=== PATIENT | male | born 1965 | race Caucasian/White ===

== ENCOUNTER 2017-06-04 09:13 | Inpatient (IN) | payer OTHER ==
[~2017-06-04] VITALS: Ht 165.1 cm; Wt 76.4 kg
[~2017-06-04 09:13] MED LIST: ASPIRIN LOW DOS81 M1 PO; METOPROLOL TART25 M1 PO; PRILOSEC 20MG C20 MG PO; SIMVASTATIN10 MG PO
--- NOTE | 2017-06-04 09:59 | ED AMS/SEIZURE/WEAK/DIZZY ---
History of Present Illness General Chief Complaint: General Adult Stated Complaint: ANXIETY,WEAKNESS Source: patient Exam Limitations: no limitations Vital Signs & Intake/Output Vital Signs & Intake/Output Vital Signs Date Time Temp Pulse Resp B/P B/P Pulse O2 O2 Flow FiO2 Mean Ox Delivery Rate 06/04 1407 97.6 80 18 123/86 99 Room Air 06/04 1305 71 144/98 06/04 1154 103 150/110 06/04 1142 98.3 103 17 150/110 99 Room Air 06/04 0921 97.3 111 16 163/115 99 Room Air Allergies Coded Allergies: NO KNOWN ALLERGIES (08/19/13) Reconcile Medications Aspirin (Aspirin Low Dose) 81 MG TAB 1 TAB PO DAILY HEART HEALTH (Reported) Metoprolol Tartrate (Lopressor) 50 MG TAB 1 TAB PO DAILY BLOOD PRESSURE ( Reported) Omeprazole (Prilosec) 20 MG CAPSULE.DR 1 TAB PO DAILY ACID REFLUX (Reported) Simvastatin (Zocor) 10 MG TABLET 1 TAB PO DAILY HIGH CHOLESTROL (Reported) Triage Note: PT TO ED WITH INCREASED WEAKNESS SINCE YESTERDAY. WAS SEEN IN THE ED YESTERDAY AND DX WITH ANXIETY AND AMS. MOTHER HERE WITH PT AND STATES THAT SHE CAME TO PICK HIM UP YESTERDAY AND HE WANTED TO LEAVE AND DID NOT WANT TO STAY TO SEE THE DOCTOR AGAIN RECOMMENDED. MOTHER STATES IT TOOK PT 1.5 HOURS TO GET READY TO GO INTO THE CAR THIS MORNING. Triage Nurses Notes Reviewed? yes HPI: Patient presents for evaluation of severe weakness that began 2 days ago. Patient was evaluated in the emergency department yesterday for similar signs and symptoms. He admits to poor sleep and poor PO intake. History is extremely limited due to severe psychomotor retardation. Patient denies fever, cold symptoms, chest pain, dyspnea or GI symptoms other than a lot of burping. He also states that he drinks alcohol occasionally and his last use was 3-4 days ago. (Carlita KERN,Amor Arthur) Past History Travel History Traveled to [place] past 21 day No Medical History Any Pertinent Medical History? see below for history Cardiovascular: hypertension Surgical History Surgical History: unobtainable Psychosocial History Who do you live with Mother Services at Home None What is your primary language Croatian Tobacco Use: Never used Family History Hx Contributory? No (Carlita KERN,Amor Arthur) Review of Systems Review of Systems Constitutional: Reports: see HPI. EENTM: Reports: no symptoms. Respiratory: Reports: no symptoms. Cardiovascular: Reports: no symptoms. GI: Reports: no symptoms. Genitourinary: Reports: no symptoms. Musculoskeletal: Reports: no symptoms. Skin: Reports: no symptoms. Neurological/Psychological: Reports: no symptoms. Hematologic/Endocrine: Reports: no symptoms. Immunologic/Allergic: Reports: no symptoms. All Other Systems: Reviewed and Negative (Carlita KERN,Amor Arthur) Physical Exam Physical Exam General Appearance: SEE BELOW Comments: Gen.: Well-nourished, well-developed, no acute respiratory distress. Appears profoundly weak. Head: Normocephalic, atraumatic. Eyes: Normal inspection bilaterally Ears: Normal inspection bilaterally Nose: Normal inspection Throat/mouth : Moist mucosa Neck: Supple, full range of motion, no goiter Heart: Regular rate and rhythm, no murmurs rubs or gallops Lungs: Clear to auscultation bilaterally with normal air entry Chest: Nontender Back: Normal range of motion Abdomen: Soft, nontender, nondistended, normal bowel sounds Extremities: Normal range of motion grossly, equal radial pulses, no cyanosis clubbing or edema Neurologic: Cranial nerves grossly intact, speech is clear Skin: warm and dry Psychiatric: Calm, cooperative, no apparent delusions or hallucinations, appears severely depressed clinically with long pauses prior to answering questions and severe indecision., Evaluation is limited due to paucity of speech Core Measures ACS in differential dx? No CVA/TIA Diagnosis No Sepsis Present: No Sepsis Focused Exam Completed? No (Carlita KERN,Amor Arthur) Progress Differential Diagnosis: DEPRESSION, BIPOLAR DISORDER, PERSONALITY DISORDER, GRIEVING Plan of Care: Orders Procedure Date/time Status Admit to inpatient psych 06/04 1445 Active URINE DRUGS OF ABUSE 06/04 1147 Complete TSH REFLEX 06/04 1003 Complete BASIC METABOLIC PANEL 06/04 1003 Complete ED CRISIS PSYCH CONSULT 06/04 1003 Active Laboratory Tests 06/04/17 1149: Urine Opiates Screen < 100, Methadone Screen < 40, Barbiturate Screen < 60, Ur Phencyclidine Scrn < 6.00, Amphetamines Screen < 100, U Benzodiazepines Scrn < 85, Urine Cocaine Screen < 50, Urine Cannabis Screen < 5.00 06/04/17 1012: Anion Gap 15, Estimated GFR > 60, BUN/Creatinine Ratio 14.0, Glucose 117 H, Calcium 10.2, TSH &T3 &Free T4 Intrp 0.934 11:15 AM PATIENT SIGNED OUT TO ME BY DR EPSTEIN, PENDING CRISIS EVALUATION. (Lauren KERN,Rosina) Initial ED EKG: none Comments: 06/04/2017 10:59:29 AM patient signed out to Dr. Aguilar at shift change attendant. (Carlita KERN,Amor Arthur) Departure Departure Disposition: STILL A PATIENT Condition: Stable Clinical Impression Primary Impression: Depression Qualifiers: Depression Type: unspecified Qualified Code: F32.9 - Major depressive disorder, single episode, unspecified Referrals: Ruiz Damon (PCP/Family) Departure Forms: Customer Survey General Discharge Information (Carlita KERN,Amor Arthur) Departure Time of Disposition: 1446 Psych Admission Note Psychiatric Admission: I have seen and evaluated RUTHY HAYS. I have also reviewed all the pertinent lab results and diagnostic results. RUTHY HAYS will be admitted to our inpatient Psychiatric unit for treatment and care. (Rosina Aguilar MD)
--- NOTE | 2017-06-04 14:42 | ED PSYCH CRISIS CONSULTATION ---
Crisis Consult Basic Assessment Date of Consult: 06/04/17 Responsible Person/Accompanied By: pt accompanied by mother Insurance Authorization: Insurance #1: Insurance name: YANELY JOHNSON Phone number: Policy number: [id number] Group number: Authorization number: ED Provider: Patient's ED Provider: Rosina Aguilar MD Primary Care Physician: Patient's PCP: Ruiz Damon PCP's Chief Complaint: General Adult Patient's Quote: " still feeling anxious." Present Illness: Pt is 51 yo single Caucaisna male who presents to ED with chief complaint of weakness since yesterday. He was seen yesterday in E.D for lightheaded symptoms with DX of anxiety and discharged with follow up plan for pt to arrange outpatient appointment with [facility]. This is pt's 2nd visit to the E.D in 24 hours. He presents as flat, minimally responive verbally, and unable to identify triggers and stressors. According to the MD's note hx was limited due ot his severe pscyhomotor reatardation. He reports high anxiety and weakness, not sleeping or eating for the past few days. Per pt he is extremely weak because he cannot "function." He has no suicidal plan/HI/AH/VH at present but feels hopeless. Pt has hx of one suicide attempt via slitting his wrists in 1991. Pt is unable to identify helpful goals for himself- when asked his eyes welled up. Pt is accompanied by his mother who reports the pt has not been himself the past few days - not eating, sleeping and is physically shaking. She is worried about him because it is getting worse. The pt has no friends, and has not been able to work in years, so he has no money. He has no structure to his day. Pt also recently stopped driving due to anxiety. Pt is not in any formal mental health tx and has no psychiatrist. Per previous consult pt is prescribed metoprolol and zocor. Collateral voicemails left with [facility] and PCP [phone]. This story writer consulted with Dr. Laurent and recommends acute inpatient treatment as the pt meets criteria for gravely disabled. Pt signed voluntary admission form. Per the crisis consult yestrday 06/03/17: Patient is a 51 year old male who presents with report of feeling lightheaded. Patient is single, never , with no children. He resides with his mother in [place], [place]. He has been unemployed for several years - he was formerly employed in several different retail settings. On arrival to the emergency department, patient was minimally responsive verbally but had no focal deficits. He was medically cleared with no acute findings by attending physician Dr. Aguilar who conducted blood labwork and a CT scan to rule out potential neurological issues. Patient was found to be hypertensive at home with a slightly elevated blood glucose level. Patient's primary care physician is SEGUN Layne of [facility]. Patient was advised to consult PCP after discharge. Patient is prescribed metoprolol to manage hypertension and zocor for hyperlipidimia. Patient denies any other medical concerns at this time. When asked if he has made any changes recently, patient reports decreasing food intake due to symptoms of bloating. Patient does not have any current mental health treatment. Patient had a psychiatric consultation and was diagnosed with alcohol abuse and depression NOS in 2009 at [facility]. Patient only reports other mental treatment with a brief episode lasting ~1 year at [facility] where he received outpatient therapy in [id number]. Patient states he was treated for depression and reports at that time he was depressed at a "2-3 level." Today, when asked to self-assess using that scale, patient reports depression ~1. Patient does indicate symptoms of anxiety and potentially symptoms indicative of a panic disorder. This story writer provided brief counseling on typical panic symptoms and how feelings of lightheadedness can rapidly progress to a full panic attack. Patient agreed this may be what happened earlier. With regards to past depression, patient states "my life was plan and ordinary" and indicates this boredom as a factor to his mood. Patient indicates he has been searching for a new career but expressed pessimism overall when discussing employment. Patient denies any current substance use. He reports only intermittent alcohol use socially and sometimes on weekdays. Patient's urine toxicology screening is negative for all substances. Patient presents alert, oriented and with flat affect / sad mood. Patient denies current or past suicidal ideation. Patient denies current or past auditory / visual hallucinations. In evaluation, there is no indication of active psychosis. Patient denies access to guns in his home. Patient reports he has the support of one cousin who lives in [place], [place] and the support of his mother with whom he resides currently. >>>>>>>>>Danny Garcia [facility] Patient's Address: [address] [place] [address] Other Phone Number: Who Do You Live With? Mother Family/Informants Interviewed: Sania [phone] ( mother) Allergies - Coded Allergies: NO KNOWN ALLERGIES (08/19/13) Current Medications - Scheduled Medications Aspirin (Aspirin Low Dose) 81 MG TAB 1 TAB PO DAILY HEART HEALTH (Reported) Entered as Reported by Connie Romero on 08/19/13 1414 Metoprolol Tartrate (Lopressor) 50 MG TAB 1 TAB PO DAILY BLOOD PRESSURE ( Reported) Entered as Reported by Connie Romero on 08/19/13 1411 Omeprazole (Prilosec) 20 MG CAPSULE.DR 1 TAB PO DAILY ACID REFLUX (Reported) Entered as Reported by Connie Romero on 08/19/13 1410 Simvastatin (Zocor) 10 MG TABLET 1 TAB PO DAILY HIGH CHOLESTROL (Reported) Entered as Reported by Connie Romero on 08/19/13 1409 Laboratory Results: Laboratory Tests 06/04/17 1149: Urine Opiates Screen < 100, Methadone Screen < 40, Barbiturate Screen < 60, Ur Phencyclidine Scrn < 6.00, Amphetamines Screen < 100, U Benzodiazepines Scrn < 85, Urine Cocaine Screen < 50, Urine Cannabis Screen < 5.00 06/04/17 1012: Anion Gap 15, Estimated GFR > 60, BUN/Creatinine Ratio 14.0, Glucose 117 H, Calcium 10.2, TSH &T3 &Free T4 Intrp 0.934 Past History Past Medical History Cardiovascular: hypertension Past Surgical History Surgical History: unobtainable Psychosocial History Strengths/Capabilities: Patient is motivated to seek treatment. Physical Limitations (Interventions): None assessed. Psychiatric Treatment History Psych Treatment Psychiatric Treatment Yes Inpatient Treatment Yes Outpatient Treatment Yes Location of Treatment [facility] Reason for Treatment Pt tried to comitt suicide in 1991 by slitting his wrists. Dates of Treatment 1991, [id number] Response to Treatment poor Diagnosis by History: Depressive disorder alcohol use disorder Substance Use/Abuse History Drug Use/Abuse Substances Used/Abused Yes Substance Used/Abused Alcohol First Use unknown Last Used couple days ago How much used/taken weekends How often intermittently For how long intermittent Route of use oral Substance Abuse Treatment Substance Abuse Treatment Past Substance Abuse [place] No Inpatient Treatment No Outpatient Treatment No Current Mental Status Mental Status Orientation: Person, Place, Situation Affect: Flat, Hopeless, Lonely Speech: Pressured, Soft Neuro-vegetative: Anhedonia, Appetite Decreased, Concentration Poor, Energy Decreased, Helpless, Loss of Interest, Sleep Disturbance Appearance Appearance- Dress/Hygiene: Pt is dressed in blue hospital scrubs, wearing glasses and hygiene is fair Behaviors Thought Process: WNL Thought Content: WNL Memory: Impaired Insight: Poor SI/HI Risk Assessment Past Suicidal Ideation/Attempts Yes Current Suicidal Ideation/Att No Past Homicidal Ideation/Att: No Current Homicidal Ideation/Attempts No Degree of Intent: None Gravely Disabled: Inability, Lack of Insight Risk Factors: high anxiety/distress, history of suicide atmpts, SA/MH hospitalized, poor impulse control, male, limited support Lethality Ratin PTSD Checklist PTSD Done? pt unable to participate ED Management Sitter: Yes Restraints: No DSM5/PS Stressors/Medical Prob Diagnosis' (DSM 5, Stressors, Medical): F32.9 unspecified depression F41.9 unspecified anxiety medical: HTN pscyhosocial: employment, financial, isolated, limited social supports Current GAF: 25 Departure Disposition Psych Medical Clearance Date: 06/04/17 Medically Cleared at: 1310 Time Started: 1310 Time Ended: 1410 Psychiatrist Consulted: Ivy Laurent MD Date Disposition Established: 06/04/17 Time Disposition Established: 1409 Plan for Disposition - Modality: Inpatient Psychiatry Facility: [facility] Rationale for Disposition: Pt presents to ED 2x in 24 hours for worsening symptoms of anxiety and panic symptoms. He presents as hopeless/ tearful and unable to identify triggers or stressors. Pt is not eating, sleeping and not able to talk at times and noted he stopped driving the past month and half due to anxiety and panic symptoms. Pt has hx of one suicide attempt in 1991 via slitting his wrists. This story writer consulted with Dr. Laurent and recommends acute inpatient treatment as the pt meets criteria for gravely disabled. Pt signed voluntary admission form. Type of IP Admission: Voluntary Referrals Ruiz Damon (PCP/Family)
--- NOTE | 2017-06-04 14:43 | SOCIAL WORKER SOCIAL HX PSYCH ---
Social History Basic Assessment Insurance Authorization: Insurance #1: Insurance name: YANELY JOHNSON Phone number: Policy number: [id number] Group number: Authorization number: Member Name Member ID Member Subscriber Name Subscriber ID RUTHY HAYS [id number] RUTHY HAYS [id number] Pended Authorization # Client Authorization # Type of Request [id number] [facility] Source of Income/Entitlements: unemployment Primary Care Physician: Patient's PCP: Ruiz Damon PCP's Present Problem: Pt is 51 yo single Caucaisna male who presents to ED with chief complaint of weakness since yesterday. He was seen yesterday in E.D for lightheaded symptoms with DX of anxiety and discharged with follow up plan for pt to arrange outpatient appointment with [facility]. This is pt's 2nd visit to the E.D in 24 hours. He presents as flat, minimally responive verbally, and unable to identify triggers and stressors. According to the MD's note hx was limited due ot his severe pscyhomotor reatardation. He reports high anxiety and weakness, not sleeping or eating for the past few days. Per pt he is extremely weak because he cannot "function." He has no suicidal plan/HI/AH/VH at present but feels hopeless. Pt has hx of one suicide attempt via slitting his wrists in 1991. Pt is unable to identify helpful goals for himself- when asked his eyes welled up. Pt is accompanied by his mother who reports the pt has not been himself the past few days - not eating, sleeping and is physically shaking. She is worried about him because it is getting worse. The pt has no friends, and has not been able to work in years, so he has no money. He has no structure to his day. Pt also recently stopped driving due to anxiety. Pt is not in any formal mental health tx and has no psychiatrist. Per previous consult pt is prescribed metoprolol and zocor. Collateral voicemails left with [facility] and PCP [phone]. This news writer consulted with Dr. Laurent and recommends acute inpatient treatment as the pt meets criteria for gravely disabled. Pt signed voluntary admission form. Per the crisis consult yestrday 06/03/17: Patient is a 51 year old male who presents with report of feeling lightheaded. Patient is single, never , with no children. He resides with his mother in [place], [place]. He has been unemployed for several years - he was formerly employed in several different retail settings. On arrival to the emergency department, patient was minimally responsive verbally but had no focal deficits. He was medically cleared with no acute findings by attending physician Dr. Aguilar who conducted blood labwork and a CT scan to rule out potential neurological issues. Patient was found to be hypertensive at home with a slightly elevated blood glucose level. Patient's primary care physician is SEGUN Layne of [facility]. Patient was advised to consult PCP after discharge. Patient is prescribed metoprolol to manage hypertension and zocor for hyperlipidimia. Patient denies any other medical concerns at this time. When asked if he has made any changes recently, patient reports decreasing food intake due to symptoms of bloating. Patient does not have any current mental health treatment. Patient had a psychiatric consultation and was diagnosed with alcohol abuse and depression NOS in 2009 at [facility]. Patient only reports other mental treatment with a brief episode lasting ~1 year at [facility], [place] where he received outpatient therapy in [id number]. Patient states he was treated for depression and reports at that time he was depressed at a "2-3 level." Today, when asked to self-assess using that scale, patient reports depression ~1. Patient does indicate symptoms of anxiety and potentially symptoms indicative of a panic disorder. This news writer provided brief counseling on typical panic symptoms and how feelings of lightheadedness can rapidly progress to a full panic attack. Patient agreed this may be what happened earlier. With regards to past depression, patient states "my life was plan and ordinary" and indicates this boredom as a factor to his mood. Patient indicates he has been searching for a new career but expressed pessimism overall when discussing employment. Patient denies any current substance use. He reports only intermittent alcohol use socially and sometimes on weekdays. Patient's urine toxicology screening is negative for all substances. Patient presents alert, oriented and with flat affect / sad mood. Patient denies current or past suicidal ideation. Patient denies current or past auditory / visual hallucinations. In evaluation, there is no indication of active psychosis. Patient denies access to guns in his home. Patient reports he has the support of one cousin who lives in [place], [place] and the support of his mother with whom he resides currently. >>>>>>>>>Danny PAULW Primary Language? Estonian Language(s) Spoken At Home: Estonian Living Situation Other Living Arrangement: relative's/guardian's mali Allergies - Coded Allergies: NO KNOWN ALLERGIES (08/19/13) Current Medications - Scheduled Medications Aspirin (Aspirin Low Dose) 81 MG TAB 1 TAB PO DAILY HEART HEALTH (Reported) Entered as Reported by Connie Romero on 08/19/13 1414 Metoprolol Tartrate (Lopressor) 50 MG TAB 1 TAB PO DAILY BLOOD PRESSURE ( Reported) Entered as Reported by Connie Romero on 08/19/13 1411 Omeprazole (Prilosec) 20 MG CAPSULE.DR 1 TAB PO DAILY ACID REFLUX (Reported) Entered as Reported by Connie Romero on 08/19/13 1410 Simvastatin (Zocor) 10 MG TABLET 1 TAB PO DAILY HIGH CHOLESTROL (Reported) Entered as Reported by Connie Romero on 08/19/13 1409 Past History Past Medical History Cardiovascular: hypertension Past Surgical History Surgical History: unobtainable /Family History Place/Country of Origin: [place] Childhood Family Constellation: Pt has 2 sisters and a brother all local in the area Primary Childhood Caretakers: mother Family Life During Childhood: good DCF Involvement? No Relationship w/Mother: good Relationship w/Father: father passed years ago , had a good relationship with him Any Sibling(s)? Yes Sibling's Gender(s)/Age(s): female Sibling 1:, female Sibling 2:, male Sibling 3: Relationship w/Sibling(s): good Relationship w/Friends: Pt said he has no friend. Other Comments: limited hx obtained due to lack of verbal responses Abuse/Trauma History Trauma History/Current Trauma: Denies Legal History Legal Guardian/Address/Phone: self Current Legal Status: none Pending Court Dates: NA Have you ever been arrested No Number of Arrests: 0 Hx of Juvenile Legal Charges? No Hx of Adult Legal Charges? No Civil Proceedings: PT denies Psychosocial History Primary Support System: mother Strengths/Capabilities: Patient is motivated to seek treatment. Weaknesses: lack of insight Physical Limitations (Interventions): None assessed. Last Physical: unknown History of Seizures? No History of Blackouts? No ADL Limitations: limited hx obtained due to lack of verbal responses Archbold/Social/Peer Relations no friends Meaningful Activities: none Childhood Adventism: no confucianist stated Current Worship Affiliation: no confucianist stated Is Spirituality Important to You? limited hx obtained due to lack of verbal responses Patient's Ethnicity: Hungarian Cultural/Ethnic Issues: none stated Are There Developmental Issues? No Milestones Achieved: fine motor, gross motor Psychiatric Treatment History Psych Treatment Inpatient Treatment Yes Outpatient Treatment Yes Location of Treatment [facility] Reason for Treatment Pt tried to comitt suicide in 1991 by slitting his wrists. Dates of Treatment 1991, [id number] Response to Treatment poor Current Trimmer And Reinforcer: none Treatment of Prior Episodes: [facility] Diagnosis: Depressive disorder alcohol use disorder Psychodynamic Issues: none stated Risk Factors: high anxiety/distress, history of suicide atmpts, isolate/no social support, male, limited support Substance Use/Abuse History Drug Use/Abuse Substance Used/Abused Alcohol First Use unknown Last Used few days ago How much used/taken a few beers How often on weekends For how long intermittently Route of use oral Have Had Periods of Sobriety? Yes Substance Abuse Treatment Substance Abuse Treatment Inpatient Treatment No Outpatient Treatment No Sexual History Sexually Active No Sexual Orientation Heterosexual Sexual Concerns: none stated Education History Highest Level of Education: not sure HX of Learning Difficulties: None reported Barriers to Learning: None reported Special Communication Needs: None reported Employment History Employment Unemployed Vocation/Occupational Hx: hx of retail stores No. of Jobs in Last 5 Years: 0 Attendance: Absenteeism Performance: Below Average History Have You Been in The ? No Current Mental Status Problem List: 1. Anxiety 2. Depression Mental Status Orientation: Person, Place, Situation Affect: Flat, Hopeless, Lonely Speech: Pressured, Soft Neuro-vegetative: Anhedonia, Appetite Decreased, Concentration Poor, Energy Decreased, Loss of Interest, Sleep Disturbance Appearance Appearance- Dress/Hygiene: pt is dressed in blue hospital scrubs, wearing glasses and hygiene is fair. Behaviors Thought Process: WNL Thought Content: WNL Memory: Impaired Insight: Poor SI/HI Risk Assessment Past Suicidal Ideation/Attempts Yes Current Suicidal Ideation/Att No Past Homicidal Ideation/Att: No Current Homicidal Ideation/Attempts No Degree of Intent: None Gravely Disabled: Inability, Lack of Insight Risk Factors: High Anxiety/Distress, SA/MH Hospitalization(s), Hx of suicide attempt(s), Isolated/no social suppor, Male, Poor impulse control Lethality Ratin - Conclusion and Recommendations for treatment - and discharge planning Summary: Pt is 51 yo single Natalya male who presents to ED with chief complaint of weakness since yesterday. He was seen yesterday in E.D for lightheaded symptoms with DX of anxiety and discharged with follow up plan for pt to arrange outpatient appointment with [facility]. This is pt's 2nd visit to the E.D in 24 hours. He presents as flat, minimally responive verbally, and unable to identify triggers and stressors. According to the MD's note hx was limited due ot his severe pscyhomotor reatardation. He reports high anxiety and weakness, not sleeping or eating for the past few days. Per pt he is extremely weak because he cannot "function." He has no suicidal plan/HI/AH/VH at present but feels hopeless. Pt has hx of one suicide attempt via slitting his wrists in 1991. Pt is unable to identify helpful goals for himself- when asked his eyes welled up. Pt is accompanied by his mother who reports the pt has not been himself the past few days - not eating, sleeping and is physically shaking. She is worried about him because it is getting worse. The pt has no friends, and has not been able to work in years, so he has no money. He has no structure to his day. Pt also recently stopped driving due to anxiety. Pt is not in any formal mental health tx and has no psychiatrist. Per previous consult pt is prescribed metoprolol and zocor. Collateral voicemails left with [facility] and PCP [phone]. This news writer consulted with Dr. Laurent and recommends acute inpatient treatment as the pt meets criteria for gravely disabled. Pt signed voluntary admission form. Per the crisis consult yestrday 06/03/17: Patient is a 51 year old male who presents with report of feeling lightheaded. Patient is single, never , with no children. He resides with his mother in [place], [place]. He has been unemployed for several years - he was formerly employed in several different retail settings. On arrival to the emergency department, patient was minimally responsive verbally but had no focal deficits. He was medically cleared with no acute findings by attending physician Dr. Aguilar who conducted blood labwork and a CT scan to rule out potential neurological issues. Patient was found to be hypertensive at home with a slightly elevated blood glucose level. Patient's primary care physician is SEGUN Layne of [facility]. Patient was advised to consult PCP after discharge. Patient is prescribed metoprolol to manage hypertension and zocor for hyperlipidimia. Patient denies any other medical concerns at this time. When asked if he has made any changes recently, patient reports decreasing food intake due to symptoms of bloating. Patient does not have any current mental health treatment. Patient had a psychiatric consultation and was diagnosed with alcohol abuse and depression NOS in 2009 at [facility]. Patient only reports other mental treatment with a brief episode lasting ~1 year at [facility] [place] where he received outpatient therapy in [id number]. Patient states he was treated for depression and reports at that time he was depressed at a "2-3 level." Today, when asked to self-assess using that scale, patient reports depression ~1. Patient does indicate symptoms of anxiety and potentially symptoms indicative of a panic disorder. This news writer provided brief counseling on typical panic symptoms and how feelings of lightheadedness can rapidly progress to a full panic attack. Patient agreed this may be what happened earlier. With regards to past depression, patient states "my life was plan and ordinary" and indicates this boredom as a factor to his mood. Patient indicates he has been searching for a new career but expressed pessimism overall when discussing employment. Patient denies any current substance use. He reports only intermittent alcohol use socially and sometimes on weekdays. Patient's urine toxicology screening is negative for all substances. Patient presents alert, oriented and with flat affect / sad mood. Patient denies current or past suicidal ideation. Patient denies current or past auditory / visual hallucinations. In evaluation, there is no indication of active psychosis. Patient denies access to guns in his home. Patient reports he has the support of one cousin who lives in [place], [place] and the support of his mother with whom he resides currently. >>>>>>>>>Danny Garcia [facility]
[2017-06-04 18:19] VITALS: BP 162/110
[2017-06-04] MEDS ORDERED: LISINOPRIL10 M1 PO (19:28)
[2017-06-04 20:21] VITALS: BP 162/110
[2017-06-04 20:27] VITALS: BP 162/110
--- NOTE | 2017-06-04 21:16 | History & Physical ---
General Information and HPI MD Statement: I have seen and personally examined RUTHY HAYS and documented this H&P. The patient is a 51 year old M who presented with a patient stated chief complaint of [ medical evaluation ]. Source of Information: patient Exam Limitations: poor historian History of Present Illness: 51 Y O M with PMH HTN, Ulcerative colitis presented in ER with his mother for extreme fatigue, not sleeping in last 4 days and poor PO intake. He appeared very depressed and anxious in ER, and admitted in [facility]. Patient denied suicidal ideation, HI, hallucinations. He offers no complains, no Chest pain, tightness, palpitations, headache, vision problem, N/ V / D, abdo pain, urinary s/s, skin rashes. Patient follows up Dr. Hudson for HTN and ?small heart enzyme elevation in 2007. No cardiac stents, no Heart failure. Patient takes lisinopril on and off. Patient picked up his recent prescription on Apr but has not been taking meds for unclear reason. For ulcerative colitis patient follows up with Dr. Deny Vasquez and complaint with mesalamine. Additionally he takes aspirin scheduled and dicyclomine PRN. Allergies/Medications Allergies: Coded Allergies: NO KNOWN ALLERGIES (08/19/13) Home Med list Aspirin (Aspirin Low Dose) 81 MG TAB 1 TAB PO DAILY HEART HEALTH (Reported) Dicyclomine HCl 10 MG CAPSULE 1 CAP PO TID PRN abdo pain (Reported) Lisinopril 10 MG TABLET 2 TAB PO DAILY HIGH BLOOD PRESSURE (Reported) Mesalamine (Apriso) 0.375 GRAM CAP.ER.24H 4 CAP PO DAILY ulcerative colitis ( Reported) Metoprolol Tartrate 25 MG TABLET 0.5 TAB PO BID HTN (Reported) Pantoprazole Sodium 20 MG TABLET.DR 1 TAB PO DAILY GERD (Reported) Simvastatin (Zocor) 10 MG TABLET 1 TAB PO DAILY HIGH CHOLESTROL (Reported) Compliance With Home Meds: FAIR Past History Travel History Traveled to [place] past 21 day No Medical History Cardiovascular: hypertension Psychiatric: anxiety, depression Surgical History Surgical History: unobtainable Past Family/Social History Psychosocial History Where do you live? Home Who Do You Live With? parent Services at Home: None Smoking Status: Never Smoked ETOH Use: occasional use Illicit Drug Use: denies illicit drug use Functional Ability ADLs Independent: dressing, eating, toileting, bathing. Ambulation: independent Sexual History Past Sexual History Unobtainable at this time Employment History Employment Unemployed Profession/Employer hx of retail stores Review of Systems Review of Systems Constitutional: Reports: no symptoms, see HPI. Exam & Diagnostic Data Last 24 Hrs of Vital Signs/I&O Vital Signs Date Time Temp Pulse Resp B/P B/P Pulse O2 O2 Flow FiO2 Mean Ox Delivery Rate 06/04 2026 94 16 162/110 06/04 2021 97.0 94 18 162/110 06/04 2020 97.0 94 162/110 06/04 1819 97.0 94 162/110 06/04 1621 98.1 74 18 122/78 98 Room Air 06/04 1407 97.6 80 18 123/86 99 Room Air 06/04 1305 71 144/98 06/04 1154 103 150/110 06/04 1142 98.3 103 17 150/110 99 Room Air 06/04 0921 97.3 111 16 163/115 99 Room Air Physical Exam General Appearance Alert, Oriented X3, Cooperative, No Acute Distress Skin No Rashes, No Breakdown HEENT Atraumatic, PERRLA, EOMI Neck Supple, No JVD, No thryomegaly, +2 Carotid Pulse wo Bruit Lymphatic Cervical nl Cardiovascular Regular Rate, Normal S1, Normal S2, No Murmurs Lungs Clear to Auscultation, Normal Air Movement Abdomen Normal Bowel Sounds, Soft, No Tenderness Neurological Exam Findings: Normal Gait, Normal Speech, Strength at 5/5 X4 Ext, Normal Tone, Sensation Intact, Cranial Nerves 3-12 NL, Reflexes 2+ Cranial Nerves II through XII: 3 to 12 intact Extremities No Clubbing, No Cyanosis, No Edema Vascular Pulses Symmetrical Last 24 Hrs of Labs/West: Laboratory Tests 06/04/17 1149: Urine Opiates Screen < 100, Methadone Screen < 40, Barbiturate Screen < 60, Ur Phencyclidine Scrn < 6.00, Amphetamines Screen < 100, U Benzodiazepines Scrn < 85, Urine Cocaine Screen < 50, Urine Cannabis Screen < 5.00 06/04/17 1012: Anion Gap 15, Estimated GFR > 60, BUN/Creatinine Ratio 14.0, Glucose 117 H, Calcium 10.2, TSH &T3 &Free T4 Intrp 0.934 Diagnostic Data EKG Results reviewed Assessment/Plan Assessment: # accelerated HTN : secondary to non-compliance. Patient could not confirm the dose of his meds. according to claim Hx he is on Metoprolol 12.4 BID and Lisinopril 20 daily. His BP was 163/115 on arrival in Er. He received 50 mg metoprolol while in ER and Bp improved to 144/98 >> 122/78 then again raised to 162/110 in [facility]. When I manually checked his BP : it was 180/118. I will continue Lisinopril 20 mh Po daily starting first dose now. Metoprolol 25 Bid, first dose now. Recheck Bp overnight. Patient does not have any complains. ECG reviewed : does not show LVH. advised to give something for anxiety as well. # Ulcerative colitis : Continue mesalamine # Depression : agree with psych plan As Ranked By This Provider Problem List: 1. Anxiety 2. Depression Qualifiers Depression Type: unspecified Qualified Code: F32.9 - Major depressive disorder, single episode, unspecified 3. Accelerated essential hypertension 4. Colitis Miscellaneous Miscellaneous Documentation Attending Case Discussed With: Ivy Laurent MD Primary Care Physician: Ruiz Damon Patient sees these Specialists Dr. Becca Vasquez Level of Patient Care: David Owen MD Review Statement Attending Statement Attending MD Statement: I personally interviewed the patient and noted H and P
[2017-06-04 22:04] VITALS: BP 138/88
[2017-06-04] MEDS ORDERED: PANTOPRAZOLE SO20 M1 PO (22:32)
[2017-06-04] MEDS ORDERED: DICYCLOMINE HCL10 M1 PO (22:33)
[2017-06-04] MEDS ORDERED: APRISO0.375 G1 PO (22:33)
[2017-06-05] VITALS (11 sets, daily range): BP systolic 112–162; BP diastolic 78–110
--- NOTE | 2017-06-05 00:12 | Admission Certification ---
Admission Certification Certification Statement - As attending physician, I certify that at the time of - admission, based on clinical presentation, severity of - symptoms, need for further diagnostic testing and - therapeutic interventions, and risk of adverse outcomes - without in-hospital treatment, in my clinical assessment, - this patient requires an acute hospital stay for a minimum - of two nights or longer. I have also considered psychsocial - factors such as support system, advanced age, financial - issues, cognitive issues, and failed out-patient treatments, - past re-admission history, safety of patient, and lack of - compliance as applicable. Specific rationale supporting this admission is: Depression
--- NOTE | 2017-06-05 11:42 | CPS PROVIDER INIT ASMT PSYCH ---
Psychiatric Admission Maintenance Shop Clerk's Note Reviewed: Yes Patient Seen and Examined: Yes Identifying Information: Pt is 51 yo single Natalya male Chief Complaint: Patient presented to the emergency department with a complaint of weakness, lightheadedness and anxiety. Inability to "function." Reaction to Hospitalization: Calm and cooperative. History of Present Illness Onset of Illness: "Past couple of weeks. Before that I was fairly fine." Circumstances Leading to Admission: Patient presented to the emergency department twice in 24 hours complaining of anxiety and inability to "function." Denied suicidal plan, homicidal ideation, auditory or visual hallucinations. Stated he felt hopeless. Problem(s) Justifying Need for Admission: Gravely disabled Past Psychiatric History Past Diagnosis(es)- if any: Depression Anxiety Hyperlipidemia Hypertension Ulcerative colitis Past Precipitating Factors- if any: "When I think about my plan for the future." - Include inpatient and outpatient treatment Treatment History: Several visits to the ER for EtOH over the past few years. History of Suicide Attempts or Gestures Pt has hx of one suicide attempt by slitting his wrists in 1991. Substance Abuse History: EtOH. was seen in ER in 2009. Continues to drink socially. Drinks to excess "once a year." Denies marijuana or other illicit drugs. In a consult note from 2009, it was stated that at that time the patient reported a history of alcohol abuse for 20 years. Allergies: Coded Allergies: NO KNOWN ALLERGIES (08/19/13) Home Med List: Aspirin (Aspirin Low Dose) 81 MG TAB Metoprolol Tartrate (Lopressor) 50 MG TAB Omeprazole (Prilosec) 20 MG CAPSULE.DR 1 TAB Lisinopril Pentasa - Include any medical condition(s) that may - impact the patient's recovery/remission Past History Medical History Cardiovascular: hypertension Gastrointestinal: ulcerative colitis Psychiatric: anxiety, depression Surgical History Surgical History: Addenoids removed. Psychiatric Family/Social Hx Family History Psychiatric Illness: Paternal aunt, unknown serious mental illness. Substance Use: Father was an alcoholic. Suicides: Denies Social History Living Situation: Lives with mother in [place]. Significant Relationships (family/friends): Mother, two cousins, brother and two sisters. Education: BS in psychology. Vocation/Occupation: Unemployed for past 4 years. Worked in [employer] and [employer] in the past. Legal: Denies Healthly Behaviors Screening Tobacco Screening Tobacco Use from ED Docu: Never used - If tobacco counseling indicated - the following topics are required. - #1 Recognizing dangerous situations. - #2 Coping Skills. - #3 Basic information about quitting. Status of Tobacco Cessation Counseling: Not Applicable Cessation Med Status Not Applicable Alcohol Screening - ETOH screen POS if BAL >=80 or Audit-C>= M4/F3 Audit-C Score from Diag Assess: 3 Blood Alcohol Level: Lab Serum Alcohol < 10.0 MG/DL 06/03/17 1135 Alcohol Use Screening Results: Pos per Audit C &/or BAL - If ETOH counseling indicated - the following topics are required. - #1 Express concern about the patient's - drinking at unhealthy levels, include informing - of national norms for moderate drinking: - men <= 14 drinks/week, max 4 drinks/occasion - women <= 7 drinks/week, max 3 drinks/occasion - #2 Providing feedback, including linking alcohol to - negative physical effects (liver injury, hypertension) - negative emotional effects (relationship problems and - depression) - negative occupational consequences (reduced work - performance) - #3 Advising the patient to abstain from alcohol or - to drink below national norms for moderate drinking - (as listed above). Status of ETOH Use Counseling: #1, #2 AND #3 Completed. Metabolic Screening - Screen if on a Neuroleptic Medication - Metabolic screening should include: - Blood Pressure, BMI, Glucose or Hgb A1c, & a - Lipid profile from within the past 365 days. Metabolic Screening ([x]) Not Applicable, patient not on a neuroleptic. OR () Patient on a neuroleptic(s) . Enter below results for Hemoglobin A1C, and lipid panel if obtained during the last 365 days. BMI: 28.000 Blood Pressure: 116/90 Laboratory Results From [facility] (If applicable): Exam and Plan Mental Status Examination Ambulation Status: Patient ambulates independently with steady gait. Appearance: Appropriately groomed, in hospital paper scrubs. Attitude towards examiner: Calm and cooperative Psychomotor activity: Within normal limits Behavior: Calm and cooperative Quality of speech: Speech is well articulated, goal-directed, average in rate, volume and tone. Affect: Slow, mildly flat. Mood: Some depression and anxiety Depression 2/10; anxiety 3/10. (With 10 the worst.) Suicidal Ideation: Denies. States he had a suicidal attempt by slitting his wrist in 1991. Patient states and also believes that he will not kill himself. Homicidal Ideation: Denies Hallucinations: Denies Paranoid/Delusional Material: Denies Difficulties with thought organization: Patient has somewhat delayed responses to questions. Insight: Fair Judgment: Fair Orientation: Alert and oriented to person, place, time and situation. Cognition: Within normal limits Memory Function: Apparently within normal limits Estimate of intellectual functioning: Average Assets/Strengths Patient Identified Assets/Strengths: "Reliable. Pile Driver Operator. Personable." Impression/Plan Impression and Plan: Major depressive disorder, recurrent, severe Generalized anxiety disorder 1. Continue Celexa for depression and anxiety 2. Continue gabapentin for anxiety 3. Melatonin at bedtime for sleep. - Include all active medical diagnosis that require tx DSM 5 Diagnosis(es): Major depressive disorder, recurrent severe. Generalized anxiety disorder. - Initial Tx Plan for Active Psych & Medical Conditions Treatment Plan: PLAN: The patient will be monitored on the unit for safety, depression and anxiety. Additional information is needed from collaterals, including his mother. Anticipate once clinically stable, that the patient will be discharged to home and family and be referred to [facility]. - Factors that would help patient function - in a less restrictive setting. Factors: Patient will report alleviation of depression and anxiety, and demonstrate ability to attend to his ADLs.
--- NOTE | 2017-06-05 17:35 | SOCIAL WORKER PROG NOTE PSYCH ---
Social Work Progress Note Progress Note This marketing writer met with patient. Patient's mother was visiting and therefore this marketing writer and patient met for a shortened period of time. Patient reported that his mood was "ok". He denied SI/HI/AH/VH. Patient stated that he had been in treatment at [facility] in the past and would like to return upon discharge. Patient and this marketing writer agreed to meet tomorrow.
[2017-06-06] VITALS (8 sets, daily range): BP systolic 117–137; BP diastolic 73–92
--- NOTE | 2017-06-06 13:55 | CP SOUTH PROGRESS NOTE PSYCH ---
Psych (Inpt) Progress Note Progress Note Include the following elements, when applicable: Involvement in the active treatment of the patient with behavioral observations of the patient and the patient's response to the treatment. Review of the ongoing treatment process in the context of the treatment plan. Indication of how multi-disciplinary staff members are carrying out the treatment plan. Plans for future interventions and recommendations for revision of the treatment plan. Liaison with other physicians/providers. Progress Note: I discussed this patient's progress to date, current mental status, treatment process in the context of the treatment plan, and discharge planning with staff/ team in the daily morning inpatient team meeting. I also met with the patient myself in individual session. A total of 25 minutes was spent with the patient with more than 50% spent in counseling and/or coordination of care. SUBJECTIVE: "sometimes I hear a voice telling me to turn right or turning left, pick this up, put that down. Sometimes the voices are helpful. Maybe it is my own inner voice. It is weird, it does not really bother me." OBJECTIVE: Current Medications Sig/Jazz Start time Last Medication Dose Route Stop Time Status Admin Aspirin 81 MG DAILY 06/05 1000 AC 06/06 PO 0817 Atorvastatin Calcium 10 MG 1700 06/05 1700 AC 06/05 PO 1730 Citalopram 20 MG 0800 06/06 0800 AC 06/06 Hydrobromide PO 0818 Dicyclomine HCl 10 MG TID PRN 06/04 2245 AC PO Gabapentin 300 MG TID 06/04 2200 AC 06/06 PO 0818 Gabapentin 200 MG Q2 HRS NEEDED PRN 06/05 1999 AC 06/04 PO 2022 Lisinopril 20 MG DAILY 06/05 1000 AC 06/06 PO 0818 Lorazepam 1 MG Q1 NEEDED PRN 06/05 1999 AC PO Lorazepam 2 MG Q1 NEEDED PRN 06/05 1999 AC PO Melatonin 5 MG AT BEDTIME 06/05 2200 AC 06/05 PO 2216 Mesalamine 500 MG 4 TIMES/DAY 06/05 1000 AC 06/06 PO 0818 Metoprolol Tartrate 25 MG BID 06/04 2200 AC 06/06 PO 0818 Omeprazole 20 MG DAILY AC 06/05 0700 AC 06/06 PO 0641 Trazodone HCl 50 MG AT BEDTIME NEED.. 06/05 1999 AC 06/05 PO 2217 Laboratory Tests 06/06 0643 Chemistry Hemoglobin A1c (4.2 - 5.8 %) 5.5 Triglycerides (<150 mg/dL) 66 Cholesterol (< 200 MG/DL) 145 LDL Cholesterol, Calc (65 - 129 mg/dL) 91 HDL Cholesterol (40 - 60 mg/dL) 41 Cholesterol/HDL Ratio (0.00 - 4.88 %) 4 TSH &T3 &Free T4 Intrp (0.27 - 4.20 uIU/mL) 0.976 Vital Signs Date Time Temp Pulse Resp B/P B/P Pulse O2 O2 Flow FiO2 Mean Ox Delivery Rate 06/06 1212 63 117/73 06/06 1211 63 117/73 06/06 0842 98.1 88 137/92 06/06 0818 98.1 88 16 137/06/06 0818 88 16 137/92 06/06 0808 98.1 88 137/92 06/05 2240 98.2 93 137/85 06/05 2217 93 137/85 06/05 2004 98.2 93 137/85 06/05 1609 81 112/78 06/05 1547 71 136/93 ASSESSMENT: Patient continues to present in a calm and pleasant manner, however very guarded. His answers to questions are times delayed. Reports only low levels of depression and anxiety, states they are improving. States that he slept normally, falling asleep well, than tossing and turning for the second part of the night. States this has been his normal for the past few weeks. Reports that his appetite is somewhat improved since coming to the hospital. He reports that his concentration is fairly good. Tolerating citalopram for depression and and gabapentin for anxiety well, without complaint, apparently to good effect so far. Depression:04/03; Anxiety:/ (with 10 the worst.) Denies homicidal ideation, visual hallucinations, paranoid ideation. He reports that he has suicidal ideation, but with no plan or intent to harm himself. Patient states and also believes that he will not kill himself. He reports auditory hallucinations of voices which may be "his inner voice." States the voices are not bothersome, is not interested in taking medicine which may help with the voices at this time. The voices are at times "helpful." Speech is well articulated, goal-directed, average in rate, volume and tone. The patient understands the risks/benefits/side effects of the medication and is agreeable to continue taking them. PLAN: Slow improvement since starting citalopram and gabapentin. Consider adding an antipsychotic for auditory hallucinations. Continue with current management as patient is improving. Continue to provide support and encouragement.
--- NOTE | 2017-06-06 17:30 | SOCIAL WORKER PROG NOTE PSYCH ---
Social Work Progress Note Progress Note Upon patient's agreement to a family meeting with his mother, this residential mortgage underwriter contacted his mother by phone ([phone]) and a family meeting has been scheduled for 06/07/17 at 2:30pm. Patient and his mother were informed that this residential mortgage underwriter will not be on the unit tomorrow and that another clinician will attend the meeting. 3:50pm This residential mortgage underwriter met with patient. He appeared guarded and giving short responses during the meeting. He acknowledged occassional AH, such as "go here," "go straight," and "turn right." He denied SI/HI/AH/VH. He expressed feeling uncomfortable on this unit due to being around "sick people." He discussed some anxiety about attending IOP, but is willing to try it. Patient denied SI/HI/AH/ VH.
[2017-06-07 08:04] VITALS: BP 129/80
[2017-06-07 08:12] VITALS: BP 129/80
[2017-06-07 12:09] VITALS: BP 115/77
[2017-06-07 12:10] VITALS: BP 115/77
--- NOTE | 2017-06-07 13:36 | CP SOUTH PROGRESS NOTE PSYCH ---
Psych (Inpt) Progress Note Progress Note Include the following elements, when applicable: Involvement in the active treatment of the patient with behavioral observations of the patient and the patient's response to the treatment. Review of the ongoing treatment process in the context of the treatment plan. Indication of how multi-disciplinary staff members are carrying out the treatment plan. Plans for future interventions and recommendations for revision of the treatment plan. Liaison with other physicians/providers. Progress Note: I discussed this patient's progress to date, current mental status, treatment process in the context of the treatment plan, and discharge planning with staff/ team in the daily morning inpatient team meeting. I also met with the patient myself in individual session. A total of 25 minutes was spent with the patient with more than 50% spent in counseling and/or coordination of care. SUBJECTIVE: "I have not heard any voices in the past 2 days." OBJECTIVE: Current Medications Sig/Jazz Start time Last Medication Dose Route Stop Time Status Admin Aspirin 81 MG DAILY 06/05 1000 AC 06/07 PO 0745 Atorvastatin Calcium 10 MG 1700 06/05 1700 AC 06/06 PO 1658 Citalopram 20 MG 0800 06/06 0800 AC 06/07 Hydrobromide PO 0745 Dicyclomine HCl 10 MG TID PRN 06/04 2245 AC PO Gabapentin 300 MG TID 06/04 2199 AC 06/07 PO 0746 Gabapentin 200 MG Q2 HRS NEEDED PRN 06/05 1999 AC 06/04 PO 2022 Lisinopril 20 MG DAILY 06/05 1000 AC 06/07 PO 0746 Lorazepam 1 MG Q1 NEEDED PRN 06/05 1999 AC PO Lorazepam 2 MG Q1 NEEDED PRN 06/05 1999 AC PO Melatonin 5 MG AT BEDTIME 06/05 2199 AC 06/06 PO 2133 Mesalamine 500 MG BID 06/06 2199 AC 06/07 PO 0746 Mesalamine 500 MG 4 TIMES/DAY 06/05 1000 DC 06/06 PO 0818 Metoprolol Tartrate 25 MG BID 06/04 2199 AC 06/07 PO 0745 Omeprazole 20 MG DAILY AC 06/05 0700 AC 06/07 PO 0636 Trazodone HCl 50 MG AT BEDTIME NEED.. 06/05 1999 AC 06/05 PO 2217 Vital Signs Date Time Temp Pulse Resp B/P B/P Pulse O2 O2 Flow FiO2 Mean Ox Delivery Rate 06/07 1210 56 115/77 06/07 1209 56 115/77 06/07 0812 98.1 80 129/80 06/07 0804 98.1 80 129/80 06/07 0746 98.6 81 16 130/79 06/07 0745 98.6 81 16 130/79 06/06 2133 98.6 81 16 130/79 06/06 2013 98.6 81 130/79 06/06 2012 98.6 81 130/79 06/06 1601 78 133/81 06/06 1555 78 133/81 ASSESSMENT: Today I met with the patient along with vp digital marketing social media and crm Valery. Patient reports that he is doing well. Tolerating medication well, to good effect. States he feels safe and ready for discharge home today. We met the patient again in a family meeting along with his mother, who states that she feels that he is safe to return home. Patient agrees to attend mental health IOP, and to weekly visiting nurse service to pre-pour medications. Depression:0/10; Anxiety:1/10 (with 10 the worst.) Denies suicidal ideation, homicidal ideation, auditory hallucinations, visual hallucinations, paranoid ideation. Patient states and also believes that he will not kill himself. Speech is well articulated, goal-directed, average in rate, volume and tone. The patient understands the risks/benefits/side effects of the medication and is agreeable to continue taking them. PLAN: 1. Discharge home today. 2. He will follow up at IOP 3. Weekly visiting nurse for medication pre- pour Continue with current management as patient is improving. Continue to provide support and encouragement.
[2017-06-07] MEDS ORDERED: TRAZODONE HCL50 M1 PO (15:12)
[2017-06-07] MEDS ORDERED: CITALOPRAM HBR20 MG PO (15:12)
[2017-06-07] MEDS ORDERED: GABAPENTIN300 M2 PO (15:12)
--- NOTE | 2017-06-07 15:21 | Patient Discharge Instructions ---
Psych Discharge Inst General Discharge Information Reason for Admission: Patient presented to the emergency department with a complaint of weakness, lightheadedness and anxiety. Psy Discharge Primary Diag+ Major Depressive disorder recurrent, severe. Psy Discharge Secondary Diag+ Generalized Anxiety d/o. Summary Tests/Major Procedures EKG on 06/04/17: Sinus Rhythm Pulse 80. QTc 443 Lab Amylase 50 U/L 08/19/13 1520 Cholesterol 145 MG/DL 06/06/17 0643 Cholesterol/HDL Ratio 4 % 06/06/17 0643 HDL Cholesterol 41 mg/dL 06/06/17 0643 LDL Cholesterol, Calc 91 mg/dL 06/06/17 0643 Lipase 329 U/L H 08/19/13 1520 TSH &T3 &Free T4 Intrp 0.976 uIU/mL 06/06/17 0643 Total Protein 8.3 g/dL H 06/03/17 1135 Triglycerides 66 mg/dL 06/06/17 0643 Plt Count 438 /CUMM H 06/03/17 1135 Studies Pending at DC: None Patient Instructions Contact Information Your Psychiatrist on [facility] was Alvaro Garrett MD * If you are experiencing an emergency related to this hospitalization, please call [phone] to contact the treating psychiatrist or the psychiatrist-on- call. * To Request a copy of your medical records, please contact the Medical Records Department at [phone]. * To request results of studies pending at the time of discharge, please call [phone]. * Continue your Medications until directed to stop by your Healthcare provider. General Medication Information Please continue to take your new medications and your continued home medications , unless otherwise indicated on your discharge medication list, or unless directed by your MD or POWDER LOADER to stop them. Special Instructions Diet Regular Activity Normal Other Inst/Recommendations Follow up at [facility], and with visiting nurse. Follow up with primary care. - Tobacco Use Treatment Offered Post DC Medications Offered: Not Applicable Post DC Tobacco Treatment Plan: Not Applicable - EtOH/Drug Use D/O Treatment Offered Post DC Medications Offered: NA-No EtOH/Drug Use D/O Post DC EtOH/SubAbuse [place] Plan: NA-No EtOH/Drug Use D/O Metabolic Screening ([x]) Not Applicable, patient not on a neuroleptic. OR () Patient on a neuroleptic(s) . Enter below results for Hemoglobin A1C, and lipid panel if obtained during the last 365 days. BMI: 28.000 Blood Pressure: 115/77 Laboratory Results From [facility] (If applicable): Advance Directives Does the Patient have Medical Advance Directives No/Refused further info Does Pt have Psychiatric Advance Directives? No/Refused further info Does Patient have a Designated Surrogate Decision Maker: No Information About Psychiatric Advance Directives Provided? Refused Discharge Plan Post Hospital Treatment Plan: Provider Referral Service Date: 06/10/17 Referred To: [[facility]] Notes: Intake with [facility] 06/10/17 at 11:30am Provider Referral Service Date: 06/08/17 Referred To: [[facility]] Notes: Pt will have a nursing services begin tomorrow for a once a week pre pour service
--- NOTE | 2017-06-07 15:25 | DISCHARGE SUMMARY REPORT-PSYCH ---
Visit Information Visit Dates/Diagnosis' Admission Date: 06/04/17 Discharge Date: 06/07/17 Reason for Admission: Patient presented to the emergency department with a complaint of weakness, lightheadedness and anxiety. Psy Discharge Primary Diag: Major Depressive disorder recurrent, severe. Psy Discharge Secondary Diag: Generalized Anxiety d/o. Hospital Course Significant Lab Findings: EKG on 06/04/17: Sinus Rhythm Pulse 80. QTc 443 Lab Amylase 50 U/L 08/19/13 1520 Cholesterol 145 MG/DL 06/06/17 0643 Cholesterol/HDL Ratio 4 % 06/06/17 0643 HDL Cholesterol 41 mg/dL 06/06/17 0643 LDL Cholesterol, Calc 91 mg/dL 06/06/17 0643 Lipase 329 U/L H 08/19/13 1520 TSH &T3 &Free T4 Intrp 0.976 uIU/mL 06/06/17 0643 Total Protein 8.3 g/dL H 06/03/17 1135 Triglycerides 66 mg/dL 06/06/17 0643 Plt Count 438 /CUMM H 06/03/17 1135 Course Complications: None Consultations: Patient was seen for admission history and physical by Tony Fish MD. Please refer to the H&P for additional information. Allergies: Coded Allergies: NO KNOWN ALLERGIES (08/19/13) Hospital Course/TX Response: The patient was monitored on the unit for safety, depression, and anxiety. He participated in multimodal treatments on the unit. He was medicated with citalopram for depression and anxiety, and gabapentin as needed for anxiety, which were well tolerated to good effect. Trazodone was prescribed on an as- needed basis for insomnia. Today, the day of discharge, he reports that he is doing well. Tolerating medication well, to good effect. States he feels safe and ready for discharge home today. We met the patient again in a family meeting along with his mother, who states that she feels that he is safe to return home. Patient agrees to attend mental health IOP, and to weekly visiting nurse service to pre-pour medications. Depression:0/10; Anxiety:1/10 (with 10 the worst.) Denies suicidal ideation, homicidal ideation, auditory hallucinations, visual hallucinations, paranoid ideation. Patient states and also believes that he will not kill himself. Speech is well articulated, goal-directed, average in rate, volume and tone. The patient understands the risks/benefits/side effects of the medication and is agreeable to continue taking them. Patient reported tolerating medications well, without complaint. States he feels ready and safe for discharge. Discharge HBIPS - Tobacco Use Treatment Offered Post DC Medications Offered: Not Applicable Post DC Tobacco Treatment Plan: Not Applicable - EtOH/Drug Use D/O Treatment Offered Post DC Medications Offered: NA-No EtOH/Drug Use D/O Post DC EtOH/SubAbuse [place] Plan: NA-No EtOH/Drug Use D/O Metabolic Screening - Screen if on a Neuroleptic Medication - Metabolic screening should include: - Blood Pressure, BMI, Glucose or Hgb A1c, & a - Lipid profile from within the past 365 days. Metabolic Screening (x) Not Applicable, patient not on a neuroleptic. OR () Patient on a neuroleptic(s) . Enter below results for Hemoglobin A1C, and lipid panel if obtained during the last 365 days. BMI: 28.000 Blood Pressure: 115/77 Laboratory Results From [facility] (If applicable): Discharge Instructions General Discharge Information Multiple Neuroleptics: (x) Not Applicable OR Document below three failed attempts at monotherapy, or a plan to taper to monotherapy, or augmentation of Clozapine. () Discharge Diet Regular Discharge Activity Normal DC Disposition: Patient returning home where he lives with his mother. Referrals Ordered Referrals Provider Referral 06/10/17 For Groups: [[facility]] Intake with [facility] 06/10/17 at 11:30am Provider Referral 06/08/17 For Groups: [[facility]] Pt will have a nursing services begin tomorrow for a once a week pre pour service Prescriptions Continue taking these medications: Simvastatin (Zocor) 10 MG TABLET 1 Tablet ORAL DAILY Metoprolol Tartrate (Metoprolol Tartrate) 25 MG TABLET 0.5 Tablet ORAL TWICE DAILY Comments: Last Taken:06/07/17 Time:07:45 Aspirin (Aspirin Low Dose) 81 MG TAB 1 Tablet ORAL DAILY Lisinopril (Lisinopril) 10 MG TABLET 2 Tablet ORAL DAILY Comments: Last Taken:06/07/17 Time:07:46 Pantoprazole Sodium (Pantoprazole Sodium) 20 MG TABLET.DR 1 Tablet ORAL DAILY Qty = 90 Comments: Last Taken:PRILOSEC GIVEN INSTEAD Time:NOT GIVEN IN HOSPITAL Dicyclomine HCl (Dicyclomine HCl) 10 MG CAPSULE 1 Capsule ORAL THREE TIMES DAILY as needed for abdo pain Qty = 90 Mesalamine (Apriso) 0.375 GRAM CAP.ER.24H 4 Capsule ORAL DAILY Qty = 120 Comments: Last Taken:06/07/17 Time:07:46 Start taking the following new medications: Gabapentin (Gabapentin) 300 MG CAPSULE 1 Capsule ORAL THREE TIMES A DAY NEEDED Qty = 42 No Refills Citalopram Hydrobromide (Citalopram HBr) 20 MG TABLET 1 Tablet ORAL DAILY @8 AM Qty = 14 No Refills Comments: Last Taken:06/07/17/ Time:07:45 Trazodone HCl (Trazodone HCl) 50 MG TABLET 1 Tablet ORAL AT BEDTIME as needed for INSOMNIA Qty = 14 No Refills Other Inst/Recommendations Follow up at IOP, and with visiting nurse. Follow up with primary care. Studies Pending at Discharge None Copies To: Intensive Outpt Psychiatry
--- NOTE | 2017-06-07 16:30 | SOCIAL WORKER PROG NOTE PSYCH ---
Social Work Progress Note Progress Note Met with pt, and his Mother Sania. Pt agreeable to VN and IOP at . Discussed ways to create good habits, and structure as a means to support positive mental health and manage depression. Pt states he is preapred for discharge, despite being slightly tired. Denies si/ hi/ah/vh. [facility] will go out to home Saturday IOP appt on Saturday at 11:30am Faxed Referral(s) 1 Referred To: IOP Transition of Care Documents sent: DC Instructions, Health Summary, W10 Faxed to: IOP Fax #: [phone] Faxed by: Valery Pino Date faxed: 06/07/17 Time Faxed: [phone] Faxed Referral(s) 2 Referred To: [facility] Transition of Care Documents sent: W10 Faxed to: [facility] Fax #: [phone] Faxed by: Valery Pino Date faxed: 06/07/17 Time Faxed: [phone]
== END 2017-06-07 17:41 | DRG 751 ==
LOC: ERH 09:13 → CP SOUTH 14:45 → ERHI 14:45 → ENTRNSPT 17:42 → EDTRNSPTSTS 17:53 → EDTRNSPT 17:53 → CP SOUTH 18:08 → CMPTRNSPT 18:12 → CP SOUTH 06-05 09:01
PROVIDERS: Nurse Practitioner Psychiatric/Mental Health
DX: F33.9 Major depressive disorder, recurrent, unspecified (principal); F41.1 Generalized anxiety disorder
CPT/HCPCS: 36415; 80307; 93005; 93010; J3490; Q2036

== ENCOUNTER 2017-06-14 13:38 | Inpatient (IN) | payer OTHER ==
[~2017-06-14] VITALS: Ht 167.6 cm; Wt 74.8 kg
[~2017-06-14 13:38] MED LIST changes: +APRISO0.375 G1 PO; +CITALOPRAM HBR20 MG PO; +DICYCLOMINE HCL10 M1 PO; +GABAPENTIN300 M2 PO; +LISINOPRIL10 M1 PO; +PANTOPRAZOLE SO20 M1 PO; +TRAZODONE HCL50 M1 PO
[2017-06-14 18:07] VITALS: BP 127/64
[2017-06-14 19:29] VITALS: BP 134/80
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
[2017-06-14 23:01] VITALS: BP 139/73
[2017-06-15 05:12] VITALS: BP 144/88
[2017-06-15 08:02] VITALS: BP 139/88
[2017-06-15 12:06] VITALS: BP 121/90
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
--- NOTE | 2017-06-15 15:14 | PN- Att Addend ---
Attending Addendum Attending Brief Note Patient seen and examined, denies any current complaints. Patient was recently admitted with depression and now again admitted with depression because he just couldn't take it anymore. Vital Signs Date Time Temp Pulse Resp B/P B/P Pulse O2 O2 Flow FiO2 Mean Ox Delivery Rate 06/15 1206 77 121/90 06/15 0844 98.4 83 139/88 06/15 0802 98.4 83 139/88 06/15 0512 74 144/88 06/14 2313 84 139/73 06/14 2301 84 139/73 06/14 1929 93 134/80 06/14 1807 98.8 80 127/64 on exam; aox3, nad. cv; s1,s2, rrr resp; clear abd; soft, nt, bs+ ext; no edema no labs. A/P; 51-year-old male with past history significant for hypertension, ulcerative colitis who is admitted with depression. Continue present evidence of medications and mesalamine for his IBD. I will defer the psych management up with psychiatrist. I reviewed his labs from 06/03/2017.
[2017-06-15 16:18] VITALS: BP 140/92
[2017-06-15 19:45] VITALS: BP 139/85
[2017-06-16 07:55] VITALS: BP 142/96
[2017-06-16 12:11] VITALS: BP 133/94
[2017-06-16 15:44] VITALS: BP 144/96
[2017-06-16 19:55] VITALS: BP 142/94
[2017-06-17 07:39] VITALS: BP 149/93
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
[2017-06-17 12:00] VITALS: BP 146/98
[2017-06-17 16:16] VITALS: BP 142/98
--- NOTE | 2017-06-17 17:04 | SOCIAL WORKER PROG NOTE PSYCH ---
Social Work Progress Note Progress Note 3:50pm This group underwriter met with patient. He described his mood as "ok." He presented as depressed with minimal eye contact. He denied SI/HI/AH/VH. Patient was agreeable to scheduling a family meeting with his mother. He was minimally active in the meeting with this group underwriter and expressed feeling overwhelmed. Patient agreed to meet again tomorrow.
[2017-06-17 19:38] VITALS: BP 160/97
[2017-06-18 07:48] VITALS: BP 168/106
[2017-06-18 09:21] VITALS: BP 137/84
[2017-06-18 12:03] VITALS: BP 123/76
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
--- NOTE | 2017-06-18 13:53 | SOCIAL WORKER PROG NOTE PSYCH ---
Social Work Progress Note Progress Note Completed online auth today 06/18/17.
[2017-06-18 15:48] VITALS: BP 148/94
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
[2017-06-18 20:03] VITALS: BP 115/87
[2017-06-19 07:39] VITALS: BP 141/92
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
[2017-06-19 12:16] VITALS: BP 132/76
--- NOTE | 2017-06-19 12:55 | SOCIAL WORKER PROG NOTE PSYCH ---
Social Work Progress Note Progress Note Completed [facility] review requested continued stay. Check [facility] website for next review date.
[2017-06-19 15:45] VITALS: BP 141/94
--- NOTE | 2017-06-19 17:25 | SOCIAL WORKER PROG NOTE PSYCH ---
Social Work Progress Note Progress Note This commercial loan underwriter met with patient. He stated, "I'm ok." Patient ranked his depression at a 2/10 and his anxiety at a 1/10. He denied SI/HI/AH/VH. Patient was minimally engaged in this discussion and provided little eye contact. Response to questions was slow. Patient was informed that this commercial loan underwriter left a vm for his mother in interest of scheduling a family meeting, to which he was agreeable. [facility] IOP intake is scheduled for 06/24/17 at 1:15pm.
[2017-06-19 19:55] VITALS: BP 141/81
[2017-06-20 07:54] VITALS: BP 141/98
[2017-06-20 12:05] VITALS: BP 132/85
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
[2017-06-20 16:03] VITALS: BP 133/92
--- NOTE | 2017-06-20 18:25 | SOCIAL WORKER PROG NOTE PSYCH ---
Social Work Progress Note Progress Note This service writer advisor met with patient. He described his mood as "pretty good" and reported decrease in his anxiety and depression. Patient reported improvement with sleep last night and felt that this was due to his medications. On the contrary, patient presented as appearing depression, little eye contact and slowed response during this meeting. Patient provided short responses to questions. He denied SI.
[2017-06-20 19:55] VITALS: BP 143/88
[2017-06-21 07:55] VITALS: BP 137/92
--- NOTE | 2017-06-21 11:19 | SOCIAL WORKER PROG NOTE PSYCH ---
Social Work Progress Note Progress Note RUTHY HAYS [id number] 1965 RUTHY HAYS [id number] Pended Authorization # Client Authorization # Type of Request [id number] CONCURRENT Date of Admission/ Start of Services Requested From Submission Date 06/14/2017 06/21/2017 06/21/2017
[2017-06-21 12:13] VITALS: BP 117/77
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
[2017-06-21 16:06] VITALS: BP 136/82
[2017-06-21 19:49] VITALS: BP 126/80
[2017-06-22 07:50] VITALS: BP 128/78
--- NOTE | 2017-06-22 10:47 | CP SOUTH PROGRESS NOTE PSYCH ---
Psych (Inpt) Progress Note Progress Note Include the following elements, when applicable: Involvement in the active treatment of the patient with behavioral observations of the patient and the patient's response to the treatment. Review of the ongoing treatment process in the context of the treatment plan. Indication of how multi-disciplinary staff members are carrying out the treatment plan. Plans for future interventions and recommendations for revision of the treatment plan. Liaison with other physicians/providers. Progress Note: Pt very difficult to engage with. Prominent thought blocking, at times seems to be responding to internal stimuli. Pt notes that he has supportive mother. He notes that he is "pretty good" overall. He plans on spending the day watching TV and relaxing. He attends group by difficult to acertain what, if anything, he is getting out of them. Very delayed and slowed reactions. Denies SI or HI. Current Medications Sig/Jazz Start time Last Medication Dose Route Stop Time Status Admin Acetaminophen 650 MG Q4P PRN 06/17 1215 AC PO Aripiprazole 5 MG AT BEDTIME 06/14 2200 DC 06/20 PO 2205 Aspirin 81 MG DAILY 06/15 1000 AC 06/22 PO 0853 Atorvastatin Calcium 10 MG 06/15 1700 AC 06/21 PO 1708 Ciprofloxacin 1 GTT 0800,1400,06/18 1400 AC 06/22 OPH 0853 Citalopram 30 MG 06/18 0800 AC 06/22 Hydrobromide PO 0853 Clonazepam 1 MG 06/21 AC 06/21 PO 06/25 1958 202 Clonazepam 0.5 MG 06/18 DC 06/20 PO 06/25 Gabapentin 400 MG Q4 HRS NEEDED PRN 06/17 1215 AC PO Hydroxyzine HCl 25 MG Q6-PRN PRN 06/19 1630 DC 06/20 PO 1631 Ibuprofen 600 MG Q6P PRN 06/17 1215 AC PO Lisinopril 20 MG 06/15 1700 AC 06/21 PO 1707 [place] Carbonate 300 MG 799,06/21 AC 06/22 PO 0853 Mesalamine 800 MG 06/18 0800 AC 06/22 PO 0852 Metoprolol Tartrate 12.5 MG BID 06/14 2200 AC 06/22 PO 0853 Omeprazole 20 MG DAILY AC 06/15 0700 AC 06/22 PO 0640 Trazodone HCl 50 MG AT BEDTIME PRN 06/14 220 AC 06/20 PO 2205 Vital Signs Date Time Temp Pulse Resp B/P B/P Pulse O2 O2 Flow FiO2 Mean Ox Delivery Rate 06/22 0853 82 128/78 06/22 0750 97.4 82 128/78 06/21 2203 97.8 71 18 126/80 06/21 1949 97.8 71 126/80 06/21 1707 98.3 79 18 136/82 06/21 1606 79 136/82 06/21 1213 64 117/77 MSE General appearance: good hygiene and grooming; Attitude: cooperative; Eye contact: appropriate; Movement: no psychomotor agitation or slowing; Speech: nl fluency, slow rate/rhythm, nl volume, nl prosody; Mood: "pretty" Affect: very flat, appropriate, constricted, non-labile, congruent; Thought process: linear and goal-directed; ++thought blocking Thought content: denied SI or HI, no paranoid ideation; Perception: denied hallucinations- auditory, visual, ++appear to be responding to internal stimuli; I/J: limited A/P: Pt with major depressive disorder though concern for MDD with psychotic features vs schizoaffective disorder given degree of thought impairment. - Need more collateral, could be atypical presentation of schizoid personality disorder -Continue current medication regimen -Encourage integration into the milieu
[2017-06-22 11:47] VITALS: BP 122/73
[2017-06-22 15:44] VITALS: BP 137/88
[2017-06-22 20:01] VITALS: BP 129/86
[2017-06-23 07:46] VITALS: BP 123/79
--- NOTE | 2017-06-23 10:42 | CP SOUTH PROGRESS NOTE PSYCH ---
Psych (Inpt) Progress Note Progress Note Include the following elements, when applicable: Involvement in the active treatment of the patient with behavioral observations of the patient and the patient's response to the treatment. Review of the ongoing treatment process in the context of the treatment plan. Indication of how multi-disciplinary staff members are carrying out the treatment plan. Plans for future interventions and recommendations for revision of the treatment plan. Liaison with other physicians/providers. Progress Note: Pt noted that he felt weak for a fleeting moment this morning. He reports that this is not new and happens from time to time. He noted good sleep. Visited by brother and sister, which was good. He feels they are supportive. He denies AHS (but in an odd tone) and denies SI or HI. Current Medications Sig/Jazz Start time Last Medication Dose Route Stop Time Status Admin Acetaminophen 650 MG Q4P PRN 06/17 1215 AC PO Aspirin 81 MG DAILY 06/15 1000 AC 06/23 PO 0820 Atorvastatin Calcium 10 MG 06/15 1700 AC 06/22 PO 1649 Ciprofloxacin 1 GTT 0800,1400,06/18 1400 AC 06/23 OPH 0821 Citalopram 30 MG 06/18 0800 AC 06/23 Hydrobromide PO 0820 Clonazepam 1 MG 06/21 AC 06/22 PO 06/25 1959 2027 Gabapentin 400 MG Q4 HRS NEEDED PRN 06/17 1215 AC PO Ibuprofen 600 MG Q6P PRN 06/17 1215 AC PO Lisinopril 20 MG 1700 06/15 1700 AC 06/22 PO 1650 [place] Carbonate 300 MG 08,06/21 PO 0820 Mesalamine 800 MG 06/18 0800 AC 06/23 PO 0820 Metoprolol Tartrate 12.5 MG BID 06/14 2200 AC 06/23 PO 0820 Omeprazole 20 MG DAILY AC 06/15 07 AC 06/23 PO 0822 Trazodone HCl 50 MG AT BEDTIME PRN 06/14 2199 AC 06/20 PO 2205 Vital Signs Date Time Temp Pulse Resp B/P B/P Pulse O2 O2 Flow FiO2 Mean Ox Delivery Rate 06/24 819 98.4 80 18 123/79 06/23 745 98.4 80 123/79 06/22 2224 70 108/63 06/22 2000 98.1 80 129/86 06/22 1650 68 137/88 06/22 1544 68 137/88 06/22 1147 52 122/73 MSE General appearance: good hygiene and grooming; Attitude: cooperative; Eye contact: appropriate; Movement: no psychomotor agitation or slowing; Speech: nl fluency, slow rate/rhythm, nl volume, nl prosody; Mood: "good" Affect: very flat, appropriate, constricted, non-labile, congruent; Thought process: linear and goal-directed; slightly less thought blocking today Thought content: denied SI or HI, no paranoid ideation; Perception: denied hallucinations- auditory, visual, appears less to be responding to internal stimuli; I/J: limited A/P: Pt with major depressive disorder though concern for MDD with psychotic features vs schizoaffective disorder given degree of thought impairment. - Need more collateral, could be atypical presentation of schizoid personality disorder, still concern - Continue current medication regimen - Encourage integration into the milieu
[2017-06-23 12:24] VITALS: BP 137/92
[2017-06-23 15:25] VITALS: BP 147/80
[2017-06-23 19:53] VITALS: BP 132/75
[2017-06-24 07:55] VITALS: BP 131/78
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
--- NOTE | 2017-06-24 09:04 | Patient Discharge Instructions ---
Psych Discharge Inst General Discharge Information Reason for Admission: severe depression Psy Discharge Primary Diag+ Major Depressive Disorder Psy Discharge Secondary Diag+ General Anxiety Disorder, Obsessive Comuplsive Spectrum Disorder Summary Tests/Major Procedures Lab BUN 13 mg/dL 06/25/17 0620 Creatinine 1.0 mg/dL 06/25/17 0620 Estimated GFR > 60 ml/min 06/25/17 0620 Potassium 4.8 mmol/L 06/25/17 0620 Sodium 141 mmol/L 06/25/17 0620 TSH &T3 &Free T4 Intrp 1.390 uIU/mL 06/25/17 0620 [place] 0.4 mmol/L L 06/25/17 0620 Studies Pending at DC: None Patient Instructions Contact Information Your Psychiatrist on [facility] was Javier Weinstein MD * If you are experiencing an emergency related to this hospitalization, please call [phone] to contact the treating psychiatrist or the psychiatrist-on- call. * To Request a copy of your medical records, please contact the Medical Records Department at [phone]. * To request results of studies pending at the time of discharge, please call [phone]. * Continue your Medications until directed to stop by your Healthcare provider. General Medication Information Please continue to take your new medications and your continued home medications , unless otherwise indicated on your discharge medication list, or unless directed by your MD or UNIVERSITY MANAGER to stop them. Special Instructions Diet Regular Activity Normal Other Inst/Recommendations You will need blood work next week - Tobacco Use Treatment Offered Post DC Medications Offered: Not Applicable Post DC Tobacco Treatment Plan: Not Applicable - EtOH/Drug Use D/O Treatment Offered Post DC Medications Offered: NA-No EtOH/Drug Use D/O Post DC EtOH/SubAbuse [place] Plan: NA-No EtOH/Drug Use D/O Metabolic Screening ([X]) Not Applicable, patient not on a neuroleptic. Advance Directives Does the Patient have Medical Advance Directives No/Refused further info Does Pt have Psychiatric Advance Directives? No/Refused further info Does Patient have a Designated Surrogate Decision Maker: No Information About Psychiatric Advance Directives Provided? Refused Discharge Plan Post Hospital Treatment Plan: GH-IOP
[2017-06-24 12:13] VITALS: BP 120/77
[2017-06-24 15:48] VITALS: BP 133/87
--- NOTE | 2017-06-24 16:17 | SOCIAL WORKER PROG NOTE PSYCH ---
Social Work Progress Note Progress Note This sign writer hand met with patient. He maintains his slowed response as in previous conversations. Patient was very ambivalent about where he would like to attend [facility]. Patient reported that he would like go to [facility] and then later in the conversation stated that he would like to go to [facility], only to finally state that he was not able to make a decision. Patient requested to have another day of attending groups in which he would process this in groups and request feedback from others. This sign writer hand discussed the plan with Dr. Weinstein and anticipated discharge date was changed until tomorrow, 06/25/17. Patient denied SI/HI/AH/VH. Intake assessment at [facility] for today was cancelled.
[2017-06-24 19:53] VITALS: BP 125/80
[2017-06-25 07:38] VITALS: BP 131/76
[2017-06-25 08:13] LABS: LITHIUM 0.4 mmol/L (0.6-1.2)
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
[2017-06-25] MEDS ORDERED: ATORVASTATIN CA10 M1 PO (10:22)
[2017-06-25] MEDS ORDERED: CLONAZEPAM1 M2 PO (10:22)
[2017-06-25] MEDS ORDERED: APRISO0.375 G1 PO (10:22)
[2017-06-25] MEDS ORDERED: ASPIRIN81 M4 PO (10:22)
[2017-06-25] MEDS ORDERED: CITALOPRAM HBR20 MG PO (10:30)
[2017-06-25] MEDS ORDERED: LITHIUM CARBON450 M1 PO (10:30)
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
[2017-06-25 12:25] VITALS: BP 126/78
--- NOTE | 2017-06-25 16:27 | SOCIAL WORKER PROG NOTE PSYCH ---
Social Work Progress Note Progress Note This bond underwriter met with patient. He was agreeable to attending an intake with [facility] today. The intake was scheduled for 2:00pm today. Patient described his mood as "it's pretty good" and denied SI/HI/AH/VH. Patient was informed that his mother expressed interest in assisting him with his medications. He was agreeable to this plan, however, requested that they work together rather than his mother managing the medications completely. Patient identified a safety plan in which he would talk to his mother. He was also informed that he would be provided with crisis numbers and warm lines upon discharge. At patient's request, mother, Sania, ([phone]) was contacted by phone to inform of discharge today and the time of the intake assessment. She agreed to provide transportation home from [facility] following the intake and was provided with the address. Sylvia Sarmiento, patient and this bond underwriter met prior to discharge. Patient was given the oppotrunity to ask questions about [facility] and what to expect. He reported following this meeting that he found it to be helpful. Patient had been referred to [facility] from the previous [facility] discharge. This bond underwriter discussed visiting nurse services with the patient. He was agreeable to a referral as long as it is only once per week. He felt that more than once per week would interfere with his schedule ("like going to the store with my mom."). This bond underwriter spoke with Laura at [facility] ( [phone]) to inquire about the possibility for weekly visits. She stated that she would look into this and inform this bond underwriter of a decision. Patient's indeciveness presented in reference to the visiting nurse referral. Ultimately, patient stated that he was only agreeing to the visiting nurse "to help my mom" and decided against the referral. He was informed that he could speak with [facility] clinicians/Sylvia Sarmiento, RECYCLING MANAGER should he want to request a referral. This bond underwriter informed Laura that a referral would not be pursued at this time. Her name and number was provided to Sylvia Sarmiento. Faxed Referral(s) Referred To: [facility] Transition of Care Documents sent: Health Summary, Transfer summary, psychiatric discharge summary Faxed to: [facility], attn: Sylvia Fax #: [phone] Faxed by: Miroslava Martin LCSW Date faxed: 06/25/17 Time Faxed: [phone]
== END 2017-06-25 14:00 | DRG 754 ==
LOC: CP SOUTH 13:38 → ENRESERV 23:59 → CP SOUTH 06-15 10:20
PROVIDERS: Psychiatry & Neurology Psychiatry
DX: F32.9 Major depressive disorder, single episode, unspecified (principal)
CPT/HCPCS: 36415; 81003; 82436; 93005; 93010; J3490

== ENCOUNTER 2017-06-29 08:43 | Inpatient (IN) | payer OTHER ==
[~2017-06-29] VITALS: Ht 167.6 cm; Wt 79.4 kg
[~2017-06-29 08:43] MED LIST changes: +ASPIRIN81 M4 PO; +ATORVASTATIN CA10 M1 PO; +CLONAZEPAM1 M2 PO; +LITHIUM CARBON450 M1 PO
--- NOTE | 2017-06-29 09:14 | ED PSYCHIATRIC COMPLAINT ---
History of Present Illness General Chief Complaint: Psychiatric Related Complaint Stated Complaint: +SI Source: patient, family, old records Exam Limitations: no limitations Vital Signs & Intake/Output Vital Signs & Intake/Output Vital Signs Date Time Temp Pulse Resp B/P B/P Pulse O2 O2 Flow FiO2 Mean Ox Delivery Rate 06/29 1105 97.9 59 20 139/96 10 Room Air 06/29 0851 98.3 60 18 152/88 98 Room Air Allergies Coded Allergies: NO KNOWN ALLERGIES (08/19/13) Reconcile Medications Aspirin (Aspirin Low Dose) 81 MG TAB 1 TAB PO DAILY HEART HEALTH (Reported) Atorvastatin Calcium 10 MG TABLET 10 MG PO 1700 cholesterol Citalopram Hydrobromide (Citalopram HBr) 20 MG TABLET 40 MG PO 0800 depression and anxiety Clonazepam 1 MG TABLET 1 TAB PO AT BEDTIME Anxiety/OCD spectrum Dicyclomine HCl 10 MG CAPSULE 1 CAP PO TID PRN abdo pain (Reported) Lisinopril 10 MG TABLET 2 TAB PO DAILY HIGH BLOOD PRESSURE (Reported) [place] Carbonate ([place] Carbonate ER) 450 MG TABLET.ER 1 TAB PO BID Depression Mesalamine (Apriso) 0.375 GRAM CAP.ER.24H 4 CAP PO DAILY ulcerative colitis Metoprolol Tartrate 25 MG TABLET 0.5 TAB PO BID HTN (Reported) Pantoprazole Sodium 20 MG TABLET.DR 1 TAB PO DAILY GERD (Reported) Trazodone HCl 50 MG TABLET 1 TAB PO AT BEDTIME PRN INSOMNIA Triage Note: 52 YO MALE TO TRIAGE C/O "I WOKE UP FEELING SAD" PT HX OF DEPRESSION. STATES "SOMETIMES I JUST WAKE UP LIKE THIS" DENIES SI/HI, DENIES ALCOHOL/DRUG USE. STATES CURRENTLY DOES NOT HAVE A PSYCHIATRIST. Triage Nurses Notes Reviewed? yes HPI: Patient was discharged from Inpatient Psychiatry on Saturday. Patient woke up this morning feeling very depressed with suicidal ideations. Patient does have hesitancy cuts to his wrist. Patient denies any homicidal ideations. Patient states he has been compliant with his medications. Past History Travel History Traveled to [place] past 21 day No Medical History Any Pertinent Medical History? see below for history Neurological: NONE EENT: NONE Cardiovascular: hypertension Respiratory: NONE Gastrointestinal: ulcerative colitis Hepatic: NONE Renal: NONE Musculoskeletal: NONE Psychiatric: anxiety, depression Endocrine: NONE Blood Disorders: NONE Cancer(s): NONE CUTTING INSPECTOR/Reproductive: NONE Surgical History Surgical History: unobtainable Psychosocial History Who do you live with Mother Services at Home None What is your primary language Luxembourgish Tobacco Use: Never used ETOH Use: denies use Illicit Drug Use: denies illicit drug use Family History Hx Contributory? No Review of Systems Review of Systems Constitutional: Reports: no symptoms. EENTM: Reports: no symptoms. Respiratory: Reports: no symptoms. Cardiovascular: Reports: no symptoms. GI: Reports: no symptoms. Genitourinary: Reports: no symptoms. Musculoskeletal: Reports: no symptoms. Skin: Reports: no symptoms. Neurological/Psychological: Reports: see HPI, depressed. Hematologic/Endocrine: Reports: no symptoms. Immunologic/Allergic: Reports: no symptoms. All Other Systems: Reviewed and Negative Physical Exam Physical Exam General Appearance: well developed/nourished, mild distress Head: atraumatic Eyes: Bilateral: PERRL, EOMI. Ears, Nose, Throat: normal pharynx, normal ENT inspection, hearing grossly normal Neck: normal inspection, supple, full range of motion Respiratory: normal breath sounds, chest non-tender, no respiratory distress, lungs clear Cardiovascular: regular rate/rhythm, normal peripheral pulses Gastrointestinal: normal bowel sounds, soft, non-tender Extremities: normal range of motion Neurological/Psychiatric: no motor/sensory deficits, awake, alert, oriented x 3 Appearance/Memory/Insight: appropriate appearance, appropriate insight Behavoir/Eye Contact/Speech: cooperative, normal speech, good eye contact Thoughts/Hallucinations: normal thought pattern, no apparent hallucination Skin: intact, normal color, warm/dry SAD PERSONS Done? yes Progress Differential Diagnosis: drug intoxication, drug overdose, drug withdrawal, electrolyte abnormality Plan of Care: Orders Procedure Date/time Status Regular Diet 06/29 L Active Admit to inpatient psych 06/29 1116 Active Patient Data - inpatient psych 06/29 1052 Active Admit to inpatient psych 06/29 1052 Active Continuous Observation Monitor 06/29 913 Active URINE DRUGS OF ABUSE 06/29 913 Complete LITHIUM 06/29 913 Complete ETHANOL 06/29 913 Complete COMPREHENSIVE METABOLIC PANEL 06/29 913 Complete CBC WITHOUT DIFFERENTIAL 06/29 913 Complete ED CRISIS PSYCH CONSULT 06/29 913 Active Vital Signs 06/29 UNK Active Activity/Ambulation 06/29 UNK Active Laboratory Tests 06/29/17 0952: [place] 0.7, Serum Alcohol < 10.0 06/29/17 0952: Anion Gap 12, Estimated GFR > 60, BUN/Creatinine Ratio 12.2, Glucose 109 H, Calcium 9.8, Total Bilirubin 0.7, AST 26, ALT 62, Alkaline Phosphatase 79, Total Protein 7.5, Albumin 4.3, Globulin 3.2, Albumin/Globulin Ratio 1.3, CBC w Diff NO MAN DIFF REQ, RBC 4.96, MCV 89.4, MCH 29.2, MCHC 32.6 L, RDW 13.2, MPV 7.1 L, Gran % 76.1 H, Lymphocytes % 16.2 L, Monocytes % 6.3, Eosinophils % 0.9, Basophils % 0.5, Absolute Granulocytes 6.9 H, Absolute Lymphocytes 1.5, Absolute Monocytes 0.6, Absolute Eosinophils 0.1, Absolute Basophils 0, Urine Opiates Screen < 100, Methadone Screen 51, Barbiturate Screen < 60, Ur Phencyclidine Scrn < 6.00, Amphetamines Screen < 100, U Benzodiazepines Scrn < 85, Urine Cocaine Screen < 50, Urine Cannabis Screen < 5.00 Departure Departure Disposition: STILL A PATIENT Condition: Stable Clinical Impression Primary Impression: Depression Referrals: Ruiz Damon (PCP/Family) Departure Forms: Customer Survey General Discharge Information Psych Admission Note Psychiatric Admission: I have seen and evaluated RUTHY HAYS. I have also reviewed all the pertinent lab results and diagnostic results. RUTHY HAYS will be admitted to our inpatient Psychiatric unit for treatment and care.
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
[2017-06-29 10:37] LABS: ABSOLUTE BASOPHIL COUNT 0 /CUMM (0.0-0.2); ABSOLUTE EOSINOPHIL COUNT 0.1 /CUMM (0.0-0.7); ABSOLUTE GRANULOCYTE CT 6.9 /CUMM (1.4-6.5); ABSOLUTE LYMPH COUNT 1.5 /CUMM (1.2-3.4); ABSOLUTE MONOCYTE COUNT 0.6 /CUMM (0.10-0.60); BASOPHIL % 0.5 % (0.0-2.0); EOSINOPHIL % 0.9 % (0-5); GRANULOCYTE % 76.1 % (42.2-75.2); HEMATOCRIT 44.3 % (42-52); MEAN CORPUSCULAR HGB 29.2 PG (27.0-31.0); MEAN CORPUSCULAR HGB CONC 32.6 G/DL (33.0-37.0); MEAN CORPUSCULAR VOLUME 89.4 FL (80.0-94.0); MEAN PLATELET VOLUME 7.1 FL (7.4-10.4); PLATELET COUNT 476 /CUMM (130-400); RBC DISTRIBUTION WIDTH 13.2 % (11.5-14.5); RED BLOOD CELL CT 4.96 /CUMM (4.70-6.10)
[2017-06-29 10:38] LABS: LITHIUM 0.7 mmol/L (0.6-1.2)
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
[2017-06-29 12:10] VITALS: BP 135/90
--- NOTE | 2017-06-29 12:44 | CPS PROVIDER INIT ASMT PSYCH ---
Psychiatric Admission Truck Mechanic Apprentice's Note Reviewed: Yes Patient Seen and Examined: Yes Identifying Information: 52yoM Chief Complaint: "I just woke up and I was sad" Reaction to Hospitalization: pt recently admitted History of Present Illness Onset of Illness: years ago Circumstances Leading to Admission: feeling sad, decreased socialization Problem(s) Justifying Need for Admission: SI and depression Other HPI: Pt was discharged from [facility] on 06/25. He has been compliant with meds per mother and pt. He has been increasing depressed and this morning awoke and found that he was sad. He grabbed a small knife and cut himself. He "didn't know" why. He does not believe he should be here. Denies SI or HI. Denies psychotic sx. Repeated several times, "I don't belong here, please let me go." Shrugged when asked about cutting himself. Past Psychiatric History Past Diagnosis(es)- if any: Major Depressive Disorder Unspecified anxiety disorder OCD Past Precipitating Factors- if any: social isolation - Include inpatient and outpatient treatment Treatment History: Recently discharged from [facility] x2 over the past 2.5 months. History of Suicide Attempts or Gestures yes, over the past 2.5 months also remote hx Substance Abuse History: denied Allergies: Coded Allergies: NO KNOWN ALLERGIES (08/19/13) Home Med List: see H&P On lithium, celexa, trazodone, and klonopin at 06/25 discharge - Include any medical condition(s) that may - impact the patient's recovery/remission Past Medical History: see H&P Past History Medical History Neurological: NONE EENT: NONE Cardiovascular: hypertension Respiratory: NONE Gastrointestinal: ulcerative colitis Hepatic: NONE Renal: NONE Musculoskeletal: NONE Psychiatric: anxiety, depression Endocrine: NONE Blood Disorders: NONE Cancer(s): NONE CONSULTING PSYCHOLOGIST/Reproductive: NONE Isolation History: Standard Tetanus Vaccine: 06/29/17 Surgical History Surgical History: Addenoids removed. Psychiatric Family/Social Hx Family History Psychiatric Illness: denied Substance Use: denied Suicides: denied Social History Living Situation: with mother Significant Relationships (family/friends): mother Education: HS Vocation/Occupation: not currently Legal: denied Healthly Behaviors Screening Tobacco Screening Tobacco Use from ED Docu: Never used - If tobacco counseling indicated - the following topics are required. - #1 Recognizing dangerous situations. - #2 Coping Skills. - #3 Basic information about quitting. Status of Tobacco Cessation Counseling: Not Applicable Cessation Med Status Not Applicable Alcohol Screening - ETOH screen POS if BAL >=80 or Audit-C>= M4/F3 Audit-C Score from Diag Assess: 1 Blood Alcohol Level: Laboratory Tests 06/30 951 Toxicology Serum Alcohol (<10 MG/DL) < 10.0 Alcohol Use Screening Results: Neg per Audit C &/or BAL - If ETOH counseling indicated - the following topics are required. - #1 Express concern about the patient's - drinking at unhealthy levels, include informing - of national norms for moderate drinking: - men <= 14 drinks/week, max 4 drinks/occasion - women <= 7 drinks/week, max 3 drinks/occasion - #2 Providing feedback, including linking alcohol to - negative physical effects (liver injury, hypertension) - negative emotional effects (relationship problems and - depression) - negative occupational consequences (reduced work - performance) - #3 Advising the patient to abstain from alcohol or - to drink below national norms for moderate drinking - (as listed above). Status of ETOH Use Counseling: #1, #2 AND #3 Completed. Metabolic Screening - Screen if on a Neuroleptic Medication - Metabolic screening should include: - Blood Pressure, BMI, Glucose or Hgb A1c, & a - Lipid profile from within the past 365 days. Metabolic Screening Laboratory Tests 06/29 06/29 0952 0952 Chemistry Sodium (137 - 145 mmol/L) 140 Potassium (3.5 - 5.1 mmol/L) 4.6 Chloride (98 - 107 mmol/L) 102 Carbon Dioxide (22 - 30 mmol/L) 26 Anion Gap (5 - 16) 12 BUN (9 - 20 mg/dL) 11 Creatinine (0.7 - 1.2 mg/dL) 0.9 Estimated GFR (>60 ml/min) > 60 BUN/Creatinine Ratio (7 - 25 %) 12.2 Glucose (65 - 99 mg/dL) 109 H Calcium (8.4 - 10.2 mg/dL) 9.8 Total Bilirubin (0.2 - 1.3 mg/dL) 0.7 AST (17 - 59 U/L) 26 ALT (21 - 72 U/L) 62 Alkaline Phosphatase (< 127 U/L) 79 Total Protein (6.3 - 8.2 g/dL) 7.5 Albumin (3.5 - 5.0 g/dL) 4.3 Globulin (1.9 - 4.2 gm/dL) 3.2 Albumin/Globulin Ratio (1.1 - 2.2 %) 1.3 Hematology CBC w Diff NO MAN DIFF REQ WBC (4.8 - 10.8 /CUMM) 9.0 RBC (4.70 - 6.10 /CUMM) 4.96 Hgb (14.0 - 18.0 G/DL) 14.5 Hct (42 - 52 %) 44.3 MCV (80.0 - 94.0 FL) 89.4 MCH (27.0 - 31.0 PG) 29.2 MCHC (33.0 - 37.0 G/DL) 32.6 L RDW (11.5 - 14.5 %) 13.2 Plt Count (130 - 400 /CUMM) 476 H MPV (7.4 - 10.4 FL) 7.1 L Gran % (42.2 - 75.2 %) 76.1 H Lymphocytes % (20.5 - 51.1 %) 16.2 L Monocytes % (1.7 - 9.3 %) 6.3 Eosinophils % (0 - 5 %) 0.9 Basophils % (0.0 - 2.0 %) 0.5 Absolute Granulocytes (1.4 - 6.5 /CUMM) 6.9 H Absolute Lymphocytes (1.2 - 3.4 /CUMM) 1.5 Absolute Monocytes (0.10 - 0.60 /CUMM) 0.6 Absolute Eosinophils (0.0 - 0.7 /CUMM) 0.1 Absolute Basophils (0.0 - 0.2 /CUMM) 0 Toxicology Urine Opiates Screen (>2000 NG/ML) < 100 Methadone Screen (>300 NG/ML) 51 Barbiturate Screen (>200 NG/ML) < 60 Ur Phencyclidine Scrn (>25 NG/ML) < 6.00 Amphetamines Screen (>1000 NG/ML) < 100 U Benzodiazepines Scrn (>200 NG/ML) < 85 [place] (0.6 - 1.2 mmol/L) 0.7 Urine Cocaine Screen (>300 NG/ML) < 50 Urine Cannabis Screen (>50 NG/ML) < 5.00 Serum Alcohol (<10 MG/DL) < 10.0 Exam and Plan Mental Status Examination Ambulation Status: freely Appearance: older than stated age Attitude towards examiner: defensive Psychomotor activity: +++ retardation Behavior: cooperative Quality of speech: slow rate/r, low volume, nl prosody Affect: irritable, flat, constricted, non-labile Mood: "I shouldn't be here" Suicidal Ideation: denied Homicidal Ideation: denied Hallucinations: denied Paranoid/Delusional Material: denied Difficulties with thought organization: ?thought blocking Insight: poor Judgment: poor Orientation: a/o x4 Cognition: grossly intact Memory Function: grossly intact Estimate of intellectual functioning: average Assets/Strengths Patient Identified Assets/Strengths: able to communicate Impression/Plan Impression and Plan: Pt with MDD and SI with odd presentations concerning for underlying thought impairment. - Include all active medical diagnosis that require tx DSM 5 Diagnosis(es): MDD - Initial Tx Plan for Active Psych & Medical Conditions Treatment Plan: - Continue d/c meds - Added abilify 5mg - Factors that would help patient function - in a less restrictive setting. Factors: increased support
--- NOTE | 2017-06-29 15:40 | PN- Att Addend ---
Assessment/Plan Assessment: 51 Y O M with PMH HTN, Ulcerative colitis presented to ER with c/c of worsening depression and suicidal attmept by cutting his left forearm Patient follows up Dr. Hudson for HTN and ? small heart enzyme elevation in 2007. Pt is on lisinopril and metoprolol for that. For ulcerative colitis patient follows up with Dr. Deny Vasquez and takes mesalamine and dicyclomine. Pt currently lives with his mother and has not been working since 2012, Pt denies smoking or alcohol use. A/P Suicidal ideation and attempt- management as per pscyhitatry. HTN- cont on lisinopril and metoprolol at current dose. Ulcerative colitis- pt takes long acting mesalamine 2 tabs 375mg in am, we do not have that so will put him on mesalamine 40omg tid. Will start on his dicyclomine 10mg qd. d/w pt the care plan. As Ranked By This Provider Problem List: 1. Colitis 2. Anxiety 3. Depression Review of Systems Review of Systems Constitutional: Denies: chills, fever. EENTM: Denies: eye pain. Cardiovascular: Denies: chest pain, palpitations. Respiratory: Denies: cough, short of breath. GI: Denies: abdominal pain, diarrhea. Genitourinary: Denies: dysuria. Musculoskeletal: Denies: back pain. Neurological/Psychological: Reports: depressed. Physical Exam Physical Exam General Appearance: well developed/nourished, no apparent distress, alert Head: atraumatic, normal appearance Eyes: Bilateral: PERRL, EOMI. Respiratory: lungs clear Cardiovascular: regular rate/rhythm Gastrointestinal: normal bowel sounds, soft, non-tender Neurologic/Psych: alert, oriented x 3, normal gait Core Measures ACS in differential dx? No CVA/TIA Diagnosis: No Sepsis Present: No Sepsis Focused Exam Completed? No
[2017-06-29 15:43] VITALS: BP 119/74
[2017-06-29 20:00] VITALS: BP 143/79
[2017-06-30 07:44] VITALS: BP 142/92
[2017-06-30 08:00] VITALS: BP 142/92
[2017-06-30 12:10] VITALS: BP 111/68
--- NOTE | 2017-06-30 12:40 | CP SOUTH PROGRESS NOTE PSYCH ---
Psych (Inpt) Progress Note Progress Note Include the following elements, when applicable: Involvement in the active treatment of the patient with behavioral observations of the patient and the patient's response to the treatment. Review of the ongoing treatment process in the context of the treatment plan. Indication of how multi-disciplinary staff members are carrying out the treatment plan. Plans for future interventions and recommendations for revision of the treatment plan. Liaison with other physicians/providers. Progress Note: Pt notes he was reticent to take abilify but eventually did. More talkative today. Encourage pt to develop coping skills around dadness as lack of coping skills lead to cutting when sad. Pt denies SI or HI. Current Medications Sig/Jazz Start time Last Medication Dose Route Stop Time Status Admin Aripiprazole 5 MG DAILY 06/29 1224 AC 06/30 PO 0924 Atorvastatin Calcium 10 MG 1700 06/29 1700 AC 06/29 PO 1746 Citalopram 40 MG 0800 06/30 0800 AC 06/30 Hydrobromide PO 0924 Clonazepam 1 MG AT BEDTIME 06/29 2200 AC 06/29 PO 07/06 2159 2119 Dicyclomine HCl 10 MG DAILY 06/29 1507 AC 06/30 PO 0924 Lisinopril 20 MG DAILY 06/30 1000 AC 06/30 PO 0924 [place] Carbonate 450 MG BID 06/29 2200 AC 06/30 PO 0925 Mesalamine 400 MG TID 06/29 1600 AC 06/30 PO 0924 Metoprolol Tartrate 12.5 MG BID 06/29 2200 AC 06/30 PO 0924 Omeprazole 40 MG DAILY AC 06/30 0700 AC 06/30 PO 0718 Trazodone HCl 50 MG AT BEDTIME PRN 06/29 1230 AC PO Laboratory Tests 06/29 06/29 0952 0952 Chemistry Sodium (137 - 145 mmol/L) 140 Potassium (3.5 - 5.1 mmol/L) 4.6 Chloride (98 - 107 mmol/L) 102 Carbon Dioxide (22 - 30 mmol/L) 26 Anion Gap (5 - 16) 12 BUN (9 - 20 mg/dL) 11 Creatinine (0.7 - 1.2 mg/dL) 0.9 Estimated GFR (>60 ml/min) > 60 BUN/Creatinine Ratio (7 - 25 %) 12.2 Glucose (65 - 99 mg/dL) 109 H Calcium (8.4 - 10.2 mg/dL) 9.8 Total Bilirubin (0.2 - 1.3 mg/dL) 0.7 AST (17 - 59 U/L) 26 ALT (21 - 72 U/L) 62 Alkaline Phosphatase (< 127 U/L) 79 Total Protein (6.3 - 8.2 g/dL) 7.5 Albumin (3.5 - 5.0 g/dL) 4.3 Globulin (1.9 - 4.2 gm/dL) 3.2 Albumin/Globulin Ratio (1.1 - 2.2 %) 1.3 Hematology CBC w Diff NO MAN DIFF REQ WBC (4.8 - 10.8 /CUMM) 9.0 RBC (4.70 - 6.10 /CUMM) 4.96 Hgb (14.0 - 18.0 G/DL) 14.5 Hct (42 - 52 %) 44.3 MCV (80.0 - 94.0 FL) 89.4 MCH (27.0 - 31.0 PG) 29.2 MCHC (33.0 - 37.0 G/DL) 32.6 L RDW (11.5 - 14.5 %) 13.2 Plt Count (130 - 400 /CUMM) 476 H MPV (7.4 - 10.4 FL) 7.1 L Gran % (42.2 - 75.2 %) 76.1 H Lymphocytes % (20.5 - 51.1 %) 16.2 L Monocytes % (1.7 - 9.3 %) 6.3 Eosinophils % (0 - 5 %) 0.9 Basophils % (0.0 - 2.0 %) 0.5 Absolute Granulocytes (1.4 - 6.5 /CUMM) 6.9 H Absolute Lymphocytes (1.2 - 3.4 /CUMM) 1.5 Absolute Monocytes (0.10 - 0.60 /CUMM) 0.6 Absolute Eosinophils (0.0 - 0.7 /CUMM) 0.1 Absolute Basophils (0.0 - 0.2 /CUMM) 0 Toxicology Urine Opiates Screen (>2000 NG/ML) < 100 Methadone Screen (>300 NG/ML) 51 Barbiturate Screen (>200 NG/ML) < 60 Ur Phencyclidine Scrn (>25 NG/ML) < 6.00 Amphetamines Screen (>1000 NG/ML) < 100 U Benzodiazepines Scrn (>200 NG/ML) < 85 [place] (0.6 - 1.2 mmol/L) 0.7 Urine Cocaine Screen (>300 NG/ML) < 50 Urine Cannabis Screen (>50 NG/ML) < 5.00 Serum Alcohol (<10 MG/DL) < 10.0 Vital Signs Date Time Temp Pulse Resp B/P B/P Pulse O2 O2 Flow FiO2 Mean Ox Delivery Rate 06/30 1210 68 111/68 07/01 923 98.7 69 20 142/92 06/30 0924 98.7 69 20 142/92 06/30 0800 98.7 69 142/92 06/30 0744 98.7 69 142/92 06/29 2118 97.9 70 20 143/79 06/30 1999 97.9 70 143/79 06/29 1543 55 119/74 MSE General appearance: good hygiene and grooming; Attitude: cooperative; Eye contact: appropriate; Movement: no psychomotor agitation or slowing; Speech: nl fluency, nl rate/rhythm, nl volume, nl prosody; Mood: "OK" Affect: irritable, very flat, appropriate, constricted, non-labile, congruent; Thought process: linear and goal-directed; Thought content: denied SI or HI, no paranoid ideation; Perception: denied hallucinations- auditory, visual, does not appear to be responding to internal stimuli; I/J: limited Pt with MDD and SI with odd presentations concerning for underlying thought impairment. - Pt to continue abilify - Continue current medication regimen
[2017-06-30 15:52] VITALS: BP 98/64
[2017-06-30 19:41] VITALS: BP 130/70
[2017-07-01 07:37] VITALS: BP 125/76
--- NOTE | 2017-07-01 08:20 | CP SOUTH PROGRESS NOTE PSYCH ---
Psych (Inpt) Progress Note Progress Note Vital Signs Date Time Temp Pulse B/P B/P Pulse O2 O2 Flow FiO2 07/01 752 62 125/76 07/013 62 125/76 07/01 0737 98.2 62 125/76 06/30 2130 60 130/70 06/30 1941 98.4 60 130/70 06/30 1552 56 98/64 MSE: Pt. was clean shaven, alert and oriented. Still having delayed responsive/very obsessive lead to cutting when sad. Pt denies SI or HI. good hygiene and grooming; Attitude: cooperative; Eye contact: appropriate; no psychomotor agitation or slowing; Speech: reduced fluency, increased latency Mood is "down" and anxious, affect flat, no loose associations denied SI or HI, no paranoid ideation; denied hallucinations- auditory, visual, does not appear to be responding to internal stimuli; Pt with MDD and SI with odd presentations concerning for underlying thought impairment. Treatment Plan Update: Aripiprazole 5 MG DAILY Atorvastatin Calcium 10 MG Citalopram 40 MG 0800 Hydrobromide PO Clonazepam 1 MG AT BEDTIME Dicyclomine HCl 10 MG DAILY Lisinopril 20 MG DAILY [place] Carbonate 450 MG BID Mesalamine 400 MG TID Metoprolol Tartrate 12.5 MG BID Omeprazole 40 MG DAILY AC Trazodone HCl 50 MG AT BEDTIME PRN
[2017-07-01 12:19] VITALS: BP 112/63
[2017-07-01 15:56] VITALS: BP 105/62
--- NOTE | 2017-07-01 16:38 | SOCIAL WORKER PROG NOTE PSYCH ---
Social Work Progress Note Progress Note This publications writer met with the patient. Patient stated that he asked his mother to bring him to the ED after he cut his wrist. He would not acknowledge whether or not this was a suicide attempt, however, stated that the act scared him when he saw blood because "it was the closest I got." Patient would not clarify. Patient stated that he would prefer to go to Care for IOP rather than return to IOP because "it's a building verses a home. A house is more confined." Patient denied current SI. He denied HI/AH/VH. Patient refused to sign an FLOWER.
[2017-07-01 19:48] VITALS: BP 130/79
[2017-07-02 07:31] VITALS: BP 110/76
--- NOTE | 2017-07-02 10:44 | CP SOUTH PROGRESS NOTE PSYCH ---
Psych (Inpt) Progress Note Progress Note Vital Signs 07/02/2017: Temp. 97.9 F (Fahrenheit), Pulse: 63; RR: 20/min.; BP: 110/76 mmHg Mental Status Examination: Pt. was clean shaven, alert and oriented. He showed quicker responses today. He remains obsessive. Pt. was cooperative; showed good eye contact; no psychomotor agitation or slowing; Mood is "down" and anxious, affect flat, no loose associations, denied SI or HI, no paranoid ideation;denied hallucinations, does not appear to be responding to internal stimuli Assessment: A 52-year-old single White male of [place] origins who was admitted to the inpatient psychiatric unit on 06/29/2017 on a PEC because of superficially cutting his left forearm with a knife (did not require sutures). 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 HTN; Ulcerative colitis; Hypercholesterolemia Treatment Plan Update: I discussed with the patient his Mesalamine formulation that he was taking at home (Apriso 375 mg Capsules (4 caps in AM), a 24-hours sustained release formulation) and I discussed option with the hospital pharmacist, we agreed on the following plan: 1) Change Mesalamine dose to 800 mg in AM and & 800 mg Q 17:00 2) Continue Aripiprazole 5 MG DAILY Continue Citalopram 20 MG 0800 Continue Sertraline 50 mg daily Clonazepam 1 MG AT BEDTIME Dicyclomine HCl 10 MG DAILY Lisinopril 20 MG DAILY Continue [place] Carbonate 450 MG BID Metoprolol Tartrate 12.5 MG BID Omeprazole 40 MG DAILY AC
[2017-07-02 12:21] VITALS: BP 119/76
--- NOTE | 2017-07-02 13:18 | SOCIAL WORKER PROG NOTE PSYCH ---
Social Work Progress Note Progress Note RUTHY HAYS [id number] 1965 RUTHY HAYS [id number] Pended Authorization # Client Authorization # Type of Request [id number] CONCURRENT Date of Admission/ Start of Services Requested From Submission Date 06/29/2017 07/02/2017 07/02/2017
--- NOTE | 2017-07-02 14:35 | Patient Discharge Instructions ---
Psych Discharge Inst General Discharge Information Reason for Admission: The patient cut his left forearm superficially with a knife, he did not require sutures it was about 2 inches proximal from wrist Psy Discharge Primary Diag+ MDD, Severe, with psychotic symptoms/signs psychotic features, OCD, Other Specified Personality Disorder Summary Tests/Major Procedures Lab Cholesterol 111 MG/DL 07/01/17 0625 Cholesterol/HDL Ratio 3 % 07/01/17 0625 HDL Cholesterol 38 mg/dL L 07/01/17 0625 Hemoglobin A1c 5.6 % 07/01/17 0625 LDL Cholesterol, Calc 60 mg/dL L 07/01/17 0625 Triglycerides 66 mg/dL 07/01/17 0625 Studies Pending at DC: None Patient Instructions Contact Information Your Psychiatrist on [facility] was Corinna KERN,Javier * If you are experiencing an emergency related to this hospitalization, please call [phone] to contact the treating psychiatrist or the psychiatrist-on- call. * To Request a copy of your medical records, please contact the Medical Records Department at [phone]. * To request results of studies pending at the time of discharge, please call [phone]. * Continue your Medications until directed to stop by your Healthcare provider. General Medication Information Please continue to take your new medications and your continued home medications , unless otherwise indicated on your discharge medication list, or unless directed by your MD or EVENT OPERATIONS MANAGER to stop them. Special Instructions Diet Regular Activity Normal - Tobacco Use Treatment Offered Post DC Medications Offered: Not Applicable Post DC Tobacco Treatment Plan: Not Applicable - EtOH/Drug Use D/O Treatment Offered Post DC Medications Offered: NA-No EtOH/Drug Use D/O Post DC EtOH/SubAbuse TX Plan: NA-No EtOH/Drug Use D/O Metabolic Screening Patient on a neuroleptic(s) . Enter below results for Hemoglobin A1C, and lipid panel if obtained during the last 365 days. BMI: 28.200 Blood Pressure: 124/78 Laboratory Results From [facility] (If applicable): Lab Cholesterol 111 MG/DL 07/01/17 0625 HDL Cholesterol 38 mg/dL L 07/01/17 0625 Hemoglobin A1c 5.6 % 07/01/17 0625 LDL Cholesterol, Calc 60 mg/dL L 07/01/17 0625 Triglycerides 66 mg/dL 07/01/17 0625 Advance Directives Does the Patient have Medical Advance Directives No/Refused further info Does Pt have Psychiatric Advance Directives? No/Refused further info Does Patient have a Designated Surrogate Decision Maker: No Information About Psychiatric Advance Directives Provided? Refused Discharge Plan Post Hospital Treatment Plan: IOP
[2017-07-02 15:40] VITALS: BP 136/64
--- NOTE | 2017-07-02 16:14 | SOCIAL WORKER PROG NOTE PSYCH ---
Social Work Progress Note Progress Note This insurance underwriter sales met with patient. He described his mood as "good overall." He denied SI/HI/AH/VH. Patient struggled to decide which IOP he would like to attend ( or Care). This insurance underwriter sales patient in identifying his anxieties about both. Patient ultimately decided on attending IOP. Patient refused a visiting nurse, stating that his mother would assist him with medications.
[2017-07-03 07:35] VITALS: BP 119/70
[2017-07-03 12:10] VITALS: BP 114/70
--- NOTE | 2017-07-03 14:04 | CP SOUTH PROGRESS NOTE PSYCH ---
Psych (Inpt) Progress Note Progress Note The treatment team discussed the patient's progress, treatment plan, and aftercare plan in the morning report. Mental Status Examination: The patient was alert and oriented to time, place, and person. The patient showed slightly brighter affect today. He remains obsessive/ ruminative. Pt. was cooperative; showed good eye contact; no psychomotor agitation or slowing; The patient reported that his mood is still "down" and anxious, he denied feeling hopeless about the future and denied wishing or thinking of suicide today The patient denied feeling paranoid, there were no loose associations, He denied violent thoughts or thoughts of homicide, no paranoid ideation; denied hallucinations, does not appear to be responding to internal stimuli Assessment: A 52-year-old single White male of [place] origins was admitted to the inpatient psychiatric unit on 06/29/2017 because of superficially cutting his left forearm with a knife (did not require sutures). He was previously at [facility]'s inpatient psychiatry in May 2017. 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 2) Increase Sertraline to 100 mg daily Continue Aripiprazole 5 MG DAILY Continue Mesalamine 800 mg in AM and & 800 mg Q 17:00 Continue Clonazepam 1 MG AT BEDTIME Dicyclomine HCl 10 MG DAILY Lisinopril 20 MG DAILY Continue [place] Carbonate 450 MG BID Metoprolol Tartrate 12.5 MG BID Omeprazole 40 MG DAILY AC
[2017-07-03 16:03] VITALS: BP 118/64
[2017-07-03 16:43] VITALS: BP 106/76
--- NOTE | 2017-07-03 16:56 | SOCIAL WORKER PROG NOTE PSYCH ---
Social Work Progress Note Progress Note This auto service writer met with the patient. He entered the meeting with a smile and stated, "I'm feeling happier." Patient expressed interest in discharging by Saturday and returning to [facility]. Patient discussed benefitting from groups on this unit, particularly meditation groups and learning about the coping skill, deep breathing. Patient appeared to struggle less with indecisiveness today. He denied SI/HI/AH/VH.
[2017-07-03 20:03] VITALS: BP 117/75
[2017-07-04 07:43] VITALS: BP 126/77
--- NOTE | 2017-07-04 12:09 | CP SOUTH PROGRESS NOTE PSYCH ---
Psych (Inpt) Progress Note Progress Note The treatment team discussed the patient's progress, treatment plan, and aftercare plan in the morning report. Mental Status Examination: The patient (Denilson) was alert and oriented to time, place, and person. Denilson reported feeling "bloated" but otherwise no other complaints. He showed brighte affect today. He was less obsessive/ruminative. Pt. was cooperative; showed good eye contact; no psychomotor agitation or slowing. Denilson reported that his mood is "better" and he was able to smile appropriately. He reported some anxiety, denied feeling hopeless about the future and denied wishing or thinking of suicide today. Denilson denied feeling paranoid, there were no loose associations, He denied violent thoughts or thoughts of homicide, no paranoid ideation; denied hallucinations, does not appear to be responding to internal stimuli. Assessment: A 52-year-old single White male of [place] origins was admitted to the inpatient psychiatric unit on 06/29/2017 because of superficially cutting his left forearm with a knife (did not require sutures). He was previously at [facility]'s inpatient psychiatry in May 2017. 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
[2017-07-04 12:25] VITALS: BP 93/72
[2017-07-04 16:01] VITALS: BP 100/68
--- NOTE | 2017-07-04 18:16 | SOCIAL WORKER PROG NOTE PSYCH ---
Social Work Progress Note Progress Note This proposal lead writer met with patient. He stated that he was not willing to have individual therapy and would like to continue with the plan to attend IOP. Patient stated that if he felt individual is needed, he would inform his IOP clinician. Patient inquired about CCT, however, refused to participate. Patient denied SI/HI/AH/VH. He appeared slightly bright than previous meetings and appeared to struggle less with decision making.
[2017-07-04 20:00] VITALS: BP 128/80
[2017-07-05 07:50] VITALS: BP 128/75
--- NOTE | 2017-07-05 09:13 | CP SOUTH PROGRESS NOTE PSYCH ---
Psych (Inpt) Progress Note Progress Note Vital Signs Date Time Temp Pulse Resp B/P Pulse O2 FiO2 07/05 821 97.8 63 20 128/75 07/05 0822 97.8 63 20 128/75 07/05 0750 97.8 63 128/75 07/046 98.6 64 128/80 07/05 1999 98.6 64 128/80 The treatment team discussed the patient's progress, treatment plan, and aftercare plan in the morning report. Mental Status Examination: The patient continues to be ruminative and obsessive. I met with him this morning on about 15 minutes later he came back saying that he decided that he does not want to take any medications for the remainder of his stay in the hospital. He reported that he decided that he wants to explore "holistic approach". He was alert and oriented to time, place, and person. He denied feeling "bloated". He showed flat affect today. He is back to having delayed responses He denied that he is experiencing any hallucinations, and he denied feeling paranoid The patient shows some psychomotor retardation, he reported that his mood is no different than in the previous days (this is a change from yesterday when he reported that his mood was starting to feel better). He reported some anxiety, Although he is denying feeling hopeless, he did not seem helpful either. The patient denied wishing or thinking of suicide today. there were no loose associations, He denied violent thoughts or thoughts of homicide, no paranoid ideation; denied hallucinations, does not appear to be responding to internal stimuli. Assessment: A 52-year-old single White male of [place] origins was admitted to the inpatient psychiatric unit on 06/29/2017 because of superficially cutting his left forearm with a knife (did not require sutures). He was previously at [facility]'s inpatient psychiatry in May 2017. He seems to have major depressive disorder but there is suspicion that he may have underlying psychotic symptoms (thought disorder) and he has severe obsessive ruminative quality to his thinking, he is too anxious about making decisions, seems to have pathological indecisiveness and extreme ambivalence and his worries are ruminative obsessive in nature making him almost impossible to reassure Today, the patient seems to have taken a step in the wrong direction and came back saying that he is thinking about stopping all psychiatric medications because he wants to explore holistic approaches. 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
[2017-07-05 12:37] VITALS: BP 123/74
--- NOTE | 2017-07-05 15:24 | SOCIAL WORKER PROG NOTE PSYCH ---
Social Work Progress Note Progress Note [facility] concurrent review entered. Check web for next review date. Member Name Member ID Member Subscriber Name Subscriber ID RUTHY HASY [id number] 1965 RUTHYQUANG HENAOLIS [id number] Pended Authorization # Client Authorization # Type of Request [id number] CONCURRENT Date of Admission/ Start of Services Requested From Submission Date 06/29/2017 07/05/2017 07/05/2017 Level of Service Type of Service Level of Care Type of Care INPATIENT/[facility]patient Hospital
[2017-07-05 15:49] VITALS: BP 123/71
--- NOTE | 2017-07-05 16:23 | SOCIAL WORKER PROG NOTE PSYCH ---
Social Work Progress Note Progress Note This typewriter ribbon winder met with patient. Patient stated that he wanted to discuss the suggestion of individual therapy in addition IOP, however, ultimately stated that he did not want to pursue individual therapy at this time and would speak with the IOP clinician if he felt that individual therapy was needed. Patient reported improved mood and stated, "I'm definitely not suicidal. I have a tiny bit better mood." Patient was agreeable to creating a safety plan over the weekend and will review it with this typewriter ribbon winder and his mother (by phone) on Saturday.
[2017-07-05 20:07] VITALS: BP 94/61
[2017-07-06 07:52] VITALS: BP 142/76
[2017-07-06 11:59] VITALS: BP 101/68
[2017-07-06 15:39] VITALS: BP 110/62
--- NOTE | 2017-07-06 16:34 | CP SOUTH PROGRESS NOTE PSYCH ---
Psych (Inpt) Progress Note Progress Note Include the following elements, when applicable: Involvement in the active treatment of the patient with behavioral observations of the patient and the patient's response to the treatment. Review of the ongoing treatment process in the context of the treatment plan. Indication of how multi-disciplinary staff members are carrying out the treatment plan. Plans for future interventions and recommendations for revision of the treatment plan. Liaison with other physicians/providers. Progress Note: Has been sleeping somewhat better, appetite is good. Quiet and withdrawn. Ambivalent about the meds but we discussed relapse risk, treatment with meds in severe sx which he has, and consideration of tapering once he has had a long period (6 months plus) stability on discharge, noting that after two severe depressive episodes it is likely that he will have another and it would be prudent to stay on for longer. He appeared to hear this information and accepted it, though not very excited about it. He denies feeling depressed or wanting to . He is future oriented, aware of pending discharge Saturday with plan for IOP. 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 He appeared to accept this information. Mother visiting today. MSE: middle aged man, calm cooperative, guarded/withdrawn. His speech is normal. Affect is constricted and mood is down. Thinking is logical. Does not appear grossly paranoid but agree has some response delay and maybe affective changes suggesting subtle psychotic sx. No thoughts to harm self/others. psychomotor slowing somewhat, no tic or tremor. Insight and judgment are fair. A: 52 year old man with history of MDD, perhaps with Psychotic features, anxiety sx, s/p cutting self without sutures. He is stabilizing and not suicidal, however remains withdrawn and quiet. Plan: continue education about meds, continue discharge plan.
[2017-07-06 19:33] VITALS: BP 111/57
[2017-07-06 21:57] VITALS: BP 127/75
[2017-07-07 07:37] VITALS: BP 123/70
--- NOTE | 2017-07-07 11:33 | CP SOUTH PROGRESS NOTE PSYCH ---
Psych (Inpt) Progress Note Progress Note Include the following elements, when applicable: Involvement in the active treatment of the patient with behavioral observations of the patient and the patient's response to the treatment. Review of the ongoing treatment process in the context of the treatment plan. Indication of how multi-disciplinary staff members are carrying out the treatment plan. Plans for future interventions and recommendations for revision of the treatment plan. Liaison with other physicians/providers. Progress Note: Stated he was groggy this morning and concerned about this for the future. We spoke again about taking medication for at least through IOP and months afterward until he sustains a good period of stability before considering tapering down, he looked at me and appeared very ambivalent about this, though accepted the information. 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 MSE: middle aged man, guarded. Looks away at times but not acutely distracted or internally preoccupied. His speech is regular rate and volume. His affect is constricted and mood is neutral. Thinking is logical. Does not appear grossly paranoid. Some psychomotor slowing. No thoughts to harm self/others. Insight and judgment are fair. A: 52 year old man with history of MDD, perhaps with Psychotic features, anxiety sx, s/p cutting self without sutures. He is stabilizing and not suicidal, however remains withdrawn and quiet, looking away at times. Plan: continue education about meds, continue discharge plan. Still ambivalent about longer term med adherence but agrees to take them for now.
[2017-07-07 12:08] VITALS: BP 103/58
[2017-07-07 15:37] VITALS: BP 103/31
[2017-07-07 19:11] VITALS: BP 126/78
[2017-07-08 07:43] VITALS: BP 135/78
--- NOTE | 2017-07-08 11:54 | CP SOUTH PROGRESS NOTE PSYCH ---
Psych (Inpt) Progress Note Progress Note Dr. Coffman's notes from the weekend were reviewed The treatment team discussed the patient's progress, treatment, and aftercare plans. Vital signs:Vital Signs Date Time Temp Pulse Resp B/P B/P Pulse O2 O2 Flow FiO2 Mean Ox Delivery Rate 07/08 0845 98.2 63 20 135/78 07/08 0845 98.2 63 20 135/78 07/08 0743 98.2 63 135/78 07/07 2234 98.2 64 20 126/78 07/07 1911 98.2 64 126/78 07/07 1537 64 103/31 Mental status examination: The patient was focused on what he believes are side effects from Zoloft. He reported stress that he was dizzy then reported is not dizzy and lightheaded and then reported that he still feeling bloated and described what seems to be difficulty with evacuating his bowels not constipation but a feeling of not have incomplete emptying and having to go back to the bathroom to defecate. He is still showing delayed responses, and when I discussed medication options with him he became irritable and angry and this was the first time I see him angry. He is convinced that the Zoloft is causing his ulcerative colitis to flare up and he reported that is why he was talking about stopping medications before the weekend. He remains guarded with delayed responses as if he is contemplating what to say. He denies feeling hopeless and denies thinking of suicide His affect is constricted and mood is depressed and irritable. Does not appear grossly paranoid. Some psychomotor slowing. No thoughts to harm self/others. Insight and judgment are poor. Assessment: A 52-year-old single White male admitted to the inpatient psychiatric unit on 06/29/2017 because of superficially cutting his left forearm with a knife (did not require sutures). He was previously at [facility]'s inpatient psychiatry in May 2017. Today, the patient seems focused on Zoloft causing him side effects and believes that states aggravating his ulcerative colitis. 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
[2017-07-08 12:09] VITALS: BP 124/71
[2017-07-08 15:42] VITALS: BP 112/70
--- NOTE | 2017-07-08 17:13 | SOCIAL WORKER PROG NOTE PSYCH ---
Social Work Progress Note Progress Note [facility] concurrent review completed. Check web for updates: Member Name Member ID Member Subscriber Name Subscriber ID RUTHY HAYS [id number] 1965 RUTHY HAYS [id number] Pended Authorization # Client Authorization # Type of Request [id number] CONCURRENT Date of Admission/ Start of Services Requested From Submission Date 06/29/2017 07/08/2017 07/08/2017 Level of Service Type of Service Level of Care Type of Care INPATIENT/[facility] - [facility]patient Hospital
--- NOTE | 2017-07-08 17:28 | SOCIAL WORKER PROG NOTE PSYCH ---
Social Work Progress Note Progress Note This tag writer met with patient. He described his mood as "not too good" which he attributes to believing that the Zoloft is causing bloating and constipation. Patient stated that he has spoken with Dr. Weinstein about these concerns and medications changes will be made. This tag writer and patient discussed discharge plans. As discussed with the treatment team, this tag writer and patient discussed the possibility of discharging 07/10/17, with the plan of going to and attending [facility] at . Patient stated that he is agreeable to doing so as long as it is the morning group because "I am a morning person." Patient was informed that he would go to [facility] at 9:30am. Patient appeared interested in this and accepted the plan. Patient stated that he had been working on the safety plan this weekend and was agreeable to reviewing it with his mother, by phone, prior to discharge. Patient stated that he is not interested in a visiting nurse and feels that his mother is helpful in assisting with medications.
[2017-07-08 19:59] VITALS: BP 136/81
[2017-07-09 07:47] VITALS: BP 117/79
[2017-07-09 12:47] VITALS: BP 129/75
--- NOTE | 2017-07-09 15:03 | CP SOUTH PROGRESS NOTE PSYCH ---
Psych (Inpt) Progress Note Progress Note The treatment team discussed the patient's progress, treatment, and aftercare plans. Mental Status Examination: The patient's responses were quicker today. He was alert and oriented to time, place, and person. He was not irritable or angry He denies feeling hopeless and denies thinking of suicide. His affect is constricted and mood is depressed and irritable. Does not appear grossly paranoid. Some psychomotor slowing. No thoughts to harm self/others. Insight and judgment are poor. Assessment: A 52-year-old single White male admitted to the inpatient psychiatric unit on 06/29/2017 because of superficially cutting his left forearm with a knife (did not require sutures). He was previously at [facility]'s inpatient psychiatry in May 2017. 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
[2017-07-09 16:01] VITALS: BP 115/64
--- NOTE | 2017-07-09 18:14 | SOCIAL WORKER PROG NOTE PSYCH ---
Social Work Progress Note Progress Note This automatic typewriter inspector met with patient. Patient's mother was visiting during this time and the patient was agreeable to including her in this conversation. Patient denied SI/HI/AH/VH. The safety plan that he had worked on was reviewed and patient stated that he would fill in the phone numbers when he returns home. Patient stated that he was still working on "red flags" to include in the safety plan. At his inquiry, this automatic typewriter inspector discussed what red flags are and examples of them. Patient stated that he was feeling better regarding his current medications. He appeared hopeful about going to [facility] tomorrow and starting the IOP after the intake. He maintains that he is not interested in individual therapy and will inform his IOP clinician if he feels he could benefit from individual therapy. Patient's mother offered to provided transportation home from [facility], which the patient accepted. Patient's mother expressed that she felt that the patient had improved and did not have any concerns at this time. She also stated that she felt comfortable with t he discharge plan. Patient also maintained that he does not want a visiting nurse and that his mother could continue to help with the medications. Patient's mother agreed.
[2017-07-09 20:12] VITALS: BP 124/77
[2017-07-10 07:43] VITALS: BP 124/78
[2017-07-10 08:08] VITALS: BP 124/78
[2017-07-10] MEDS ORDERED: APRISO0.375 G1 PO (08:21)
[2017-07-10] MEDS ORDERED: ABILIFY10 M1 PO (08:21)
[2017-07-10] MEDS ORDERED: LITHIUM CARBON450 M1 PO (08:21)
[2017-07-10] MEDS ORDERED: ATORVASTATIN CA10 M1 PO (08:21)
[2017-07-10] MEDS ORDERED: KLONOPIN0.5 M1 PO (08:24)
[2017-07-10] MEDS ORDERED: Bentyl PO (08:24)
--- NOTE | 2017-07-10 08:46 | DISCHARGE SUMMARY REPORT-PSYCH ---
Visit Information Visit Dates/Diagnosis' Admission Date: 06/29/17 Discharge Date: 07/10/17 Reason for Admission: The patient cut his left forearm superficially with a knife, he did not require sutures it was about 2 inches proximal from wrist Psy Discharge Primary Diag: MDD, Severe, with psychotic symptoms/signs psychotic features OCD Other Specified Personality Disorder Psy Discharge Secondary Diag: OCD Hospital Course Course Allergies: Coded Allergies: NO KNOWN ALLERGIES (08/19/13) Discharge HBIPS - Tobacco Use Treatment Offered - EtOH/Drug Use D/O Treatment Offered Metabolic Screening - Screen if on a Neuroleptic Medication - Metabolic screening should include: - Blood Pressure, BMI, Glucose or Hgb A1c, & a - Lipid profile from within the past 365 days. Discharge Instructions General Discharge Information Discharge Diet Regular Discharge Activity Normal Referrals Ordered Referrals Provider Referral 07/10/17 For Groups: [[facility]] [address] [phone] Intake Appointment: 07/10/17, at 9:30am Patient will attend [facility] at 10am following the intake. Prescriptions Stop taking the following medications: Trazodone HCl (Trazodone HCl) 50 MG TABLET ORAL AT BEDTIME as needed for INSOMNIA Qty = 14 Clonazepam (Clonazepam) 1 MG TABLET ORAL AT BEDTIME Qty = 15 Citalopram Hydrobromide (Citalopram HBr) 20 MG TABLET ORAL DAILY @8 AM Qty = 30 Dicyclomine HCl (Dicyclomine HCl) 10 MG CAPSULE ORAL THREE TIMES DAILY as needed for abdo pain Qty = 90 Continue taking these medications: Metoprolol Tartrate (Metoprolol Tartrate) 25 MG TABLET 0.5 Tablet ORAL TWICE DAILY Comments: Last Taken:07/10/17 Time:8am Lisinopril (Lisinopril) 10 MG TABLET 2 Tablet ORAL DAILY Comments: Last Taken:07/10/17 Time:8am Pantoprazole Sodium (Pantoprazole Sodium) 20 MG TABLET.DR 1 Tablet ORAL DAILY Qty = 90 Comments: Last Taken:PRILOSEC GIVEN INSTEAD 06/24/17 Time:0700 Atorvastatin Calcium (Atorvastatin Calcium) 10 MG TABLET 10 Milligram ORAL 5 PM Qty = 30 This prescription has been renewed [place] Carbonate (Weirton Carbonate ER) 450 MG TABLET.ER 1 Tablet ORAL TWICE DAILY Qty = 30 This prescription has been renewed Mesalamine (Apriso) 0.375 GRAM CAP.ER.24H 4 Capsule ORAL DAILY Qty = 120 This prescription has been renewed Start taking the following new medications: Aripiprazole (Abilify) 10 MG TABLET 10 Milligram ORAL DAILY Qty = 15 No Refills [Bentyl] 10 Milligram ORAL DAILY Qty = 30 No Refills Clonazepam (Klonopin) 0.5 MG TABLET 0.5 Milligram ORAL AT BEDTIME Qty = 15 No Refills Studies Pending at Discharge None
--- NOTE | 2017-07-10 18:12 | SOCIAL WORKER PROG NOTE PSYCH ---
Social Work Progress Note Progress Note 8:50am - this entry writer met with patient who was agreeable, and appeared eager, to go to [facility] today with an intake at 9:30am and start the IOP at 10am today. He stated that, as discussed last night, the plan is for his mother to provide transportation home from [facility] at 1pm today. Patient denied SI/HI/AH/VH. He stated that he will utilize his safety plan. He identified red flags as increased sadness and people/places he can call for support or feeling unsafe. He was also agreeable to utlizing the warm line and crisis numbers if needed ( provided upon discharge). Patient denied SI/HI/AH/VH. Patient presented with good eye contact, spontaneous in this conversation and with appropriate smile. 9:15pm - as requested by nursing, this entry writer met with patient. Patient stated that he did not want to go to the IOP group today because he did not want to share. This entry writer attempted to assist patient in identifying strategies to be more comfortable with IOP, such as utilizing today to listen in the groups rather than sharing. As patient continued to appear hesitant, this entry writer offered to accompany the patient to the intake. He refused. He requested to wait until later to attend the intake and only attend the intake today (rather than groups), stating, "I'll commit to it if I can go later." This entry writer spoke with Sylvia Sarmiento at [facility] and patient was offered an 11:30am intake, which he accepted. This entry writer met with patient briefly before leaving for the 11:30am intake. He stated that he had not yet called his mother and did not want this entry writer to do so regarding the change in plans. He stated that he would call her from [facility] and was willing to wait until 1pm if needed. Patient denied safety concerns as he had done earlier today. Faxed Referral(s) Referred To: [facility] Transition of Care Documents sent: Health Summary Faxed to: [facility] Fax #: [phone] Faxed by: Miroslava Martin LCSW Date faxed: 07/10/17 Time Faxed: [phone]
--- NOTE | 2017-07-10 20:17 | CP SOUTH PROGRESS NOTE PSYCH ---
Psych (Inpt) Progress Note Progress Note Mental Status Examination: The patient seemed ready for discharge and agreeable to -IOP but when the time came he would not leave. When I met with him earlier (before the moment of discharge), he was alert and oriented to time, place, and person. He was not irritable or angry. He denies feeling hopeless and denies thinking of suicide. His affect was reasonably animated (not depressed or irritable). The patient did not appear grossly paranoid or delusional. He did show some psychomotor slowing. He denied thoughts to harm self/others. The patient's insight and judgment are chronically poor. Assessment: A 52-year-old single White male admitted to the Inpatient psychiatric unit on 06/29/2017 because of superficially cutting his left forearm with a knife (did not require sutures). He was previously at [facility]'s inpatient psychiatry in May 2017. Over the 11 days he was inpatient he showed minimal improvement and remained very obsessive and anxious. 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
== END 2017-07-10 11:25 | DRG 751 ==
LOC: ERH 08:43 → CP SOUTH 10:52 → ERHI 10:52 → CP SOUTH 12:01
PROVIDERS: Emergency Medicine; Student in an Organized Health Care Education/Training Program
DX: F32.3 Major depressive disorder, single episode, severe with psychotic features (principal); F42.9 Obsessive-compulsive disorder, unspecified; F60.9 Personality disorder, unspecified
CPT/HCPCS: 36415; 80307; 90714; G0480; J0401